=== PATIENT | female | born 1930 | race American Indian/Alaskan Native ===

== ENCOUNTER 2016-09-19 14:03 | Inpatient (IN) | payer MEDICARE ==
[2016-09-19 14:24] LABS: Urine Drugs of Abuse Note Disclamer
[2016-09-19 14:32] LABS: Bilirubin,Urine NEG (Negative); Blood,Urine NEG (Negative); Ketones,Urine NEG (Negative); Leukocyte Esterase,Urine NEG (Negative); Mucus,Urine FEW /HPF; Nitrite,Urine NEG (Negative); Protein,Urine <15 mg/dL mg/dL (Negative); RBC,Urine < 1.0 /HPF (0.0-6.0); Urobilinogen,Urine < 2.0 mg/dL (<2.0); WBC,Urine < 1.0 /HPF (0.0-6.0)
[2016-09-19 15:04] LABS: Basophils % (Auto) 0.8 % (0.0-1.8); Eosinophils % (Auto) 2.3 % (0.0-4.3); Hematocrit 39.7 % (30.3-42.9); Hemoglobin 13.1 gm/dl (10.1-14.3); Mean Corpuscular HGB Conc 33 % (30-34); Mean Corpuscular Hemoglobin 28 pg (28-32); Mean Corpuscular Volume 85 fl (79-97); Platelet Count 172 K/mm3 (140-440); Red Blood Count 4.68 M/mm3 (3.65-5.03); Red Cell Distribution Width 14.5 % (13.2-15.2); White Blood Count 5.9 K/mm3 (4.5-11.0)
[2016-09-19 15:26] LABS: Albumin 3.5 g/dL (3.9-5); BUN/Creatinine Ratio 15.83; Bilirubin,Total 0.5 mg/dL (0.1-1.2); Calcium 9.3 mg/dL (8.4-10.2); Chloride 103.7 mmol/L (98-107); Total Protein 6.9 g/dL (6.3-8.2)
--- NOTE | 2016-09-19 16:10 | Emergency Department Report ---
HPI - General Chief Complaint: Neuro Symptoms/Deficit Time Seen by Provider: 09/19/16 15:56 - HPI HPI: This is an 86-year-old -[place] female who presents to the emergency department by EMS from home with complaint of some right-sided weakness. The patient says that her family felt that she was having trouble getting up the stairs because of this weakness and called EMS. The patient herself denies any headache, vision change, slurred speech, facial asymmetry but does agree that she had some right-sided weakness that has since resolved. She has a past medical history of a previous CVA that did not leave her with any persistent deficits. She has not taken anything and was not given anything for her symptoms prior to presentation. She has a primary care physician but cannot currently remember the name. No recent travel or sick contacts at home. ED Past Medical Hx - Past Medical History Previous Medical History?: Yes Hx Hypertension: Yes Hx CVA: Yes - Surgical History Past Surgical History?: No - Social History Smoking Status: Never Smoker Substance Use Type: None - Medications Home Medications: Home Medications Medication Instructions Recorded Confirmed Last Taken Type Aspirin [Adult Low Dose Aspirin EC] 81 mg PO QDAY 09/19/16 09/19/16 Unknown History AtorvaSTATin [Lipitor] 40 mg PO QHS 09/19/16 09/19/16 Unknown History Carvedilol [Coreg] 25 mg PO BID 09/19/16 09/19/16 Unknown History ED Review of Systems ROS: Stated complaint: WEAKNESS Other details as noted in HPI Comment: All other systems reviewed and negative Constitutional: denies: chills, fever Eyes: denies: eye pain, eye discharge, vision change ENT: denies: ear pain, throat pain Respiratory: denies: cough, shortness of breath, wheezing Cardiovascular: denies: chest pain, palpitations Gastrointestinal: denies: abdominal pain, nausea, diarrhea Genitourinary: denies: urgency, dysuria, discharge Musculoskeletal: denies: back pain, joint swelling, arthralgia Skin: denies: rash, lesions Neurological: weakness. denies: headache, numbness, paresthesias Physical Exam - Physical Exam Vital Signs: Vital Signs 09/19/16 09/19/16 09/19/16 14:07 14:08 14:10 Pulse Rate 74 74 Respiratory 14 13 14 Rate Blood Pressure O2 Sat by Pulse 100 99 98 Oximetry 09/19/16 09/19/16 09/19/16 14:12 14:14 14:16 Pulse Rate 80 74 76 Respiratory 15 12 16 Rate Blood Pressure 173/84 173/84 O2 Sat by Pulse 99 98 99 Oximetry 09/19/16 09/19/16 09/19/16 14:24 14:30 14:46 Pulse Rate 70 72 Respiratory 12 13 16 Rate Blood Pressure 173/84 173/84 O2 Sat by Pulse 98 99 99 Oximetry 09/19/16 09/19/16 09/19/16 15:00 15:16 15:30 Pulse Rate 76 74 94 H Respiratory 19 24 22 Rate Blood Pressure 173/84 O2 Sat by Pulse 99 99 98 Oximetry Physical Exam: GENERAL: The patient is well-developed well-nourished. HEENT: Normocephalic. Atraumatic. Extraocular motions are intact. Patient has moist mucous membranes. Pupils equal reactive to light bilaterally. NECK: Supple. Trachea is midline. CHEST/LUNGS: Clear to auscultation. There is no respiratory distress noted. HEART/CARDIOVASCULAR: Regular. There is no tachycardia. There is no gallop rub or murmur. ABDOMEN: Abdomen is soft, nontender. Patient has normal bowel sounds. There is no abdominal distention. SKIN: There is no rash. There is no edema. There is no diaphoresis. NEURO: The patient is awake, alert, and oriented. The patient is cooperative. The patient has no focal neurologic deficits. The patient has normal speech. Cranial nerves II through XII grossly intact. No pronator drift. No dysmetria. MUSCULOSKELETAL: There is no tenderness or deformity. There is no limitation range of motion. There is no evidence of acute injury. Muscle strength 5 out of 5 for upper and lower extremities bilaterally. ED Course Vital Signs 09/19/16 09/19/16 09/19/16 14:07 14:08 14:10 Pulse Rate 74 74 Respiratory 14 13 14 Rate Blood Pressure O2 Sat by Pulse 100 99 98 Oximetry 09/19/16 09/19/16 09/19/16 14:12 14:14 14:16 Pulse Rate 80 74 76 Respiratory 15 12 16 Rate Blood Pressure 173/84 173/84 O2 Sat by Pulse 99 98 99 Oximetry 09/19/16 09/19/16 09/19/16 14:24 14:30 14:46 Pulse Rate 70 72 Respiratory 12 13 16 Rate Blood Pressure 173/84 173/84 O2 Sat by Pulse 98 99 99 Oximetry 09/19/16 09/19/16 09/19/16 15:00 15:16 15:30 Pulse Rate 76 74 94 H Respiratory 19 24 22 Rate Blood Pressure 173/84 O2 Sat by Pulse 99 99 98 Oximetry ED Medical Decision Making - Lab Data Result diagrams: 09/19/16 14:43 09/19/16 14:43 - EKG Data -: EKG Interpreted by Tn EKG shows normal: sinus rhythm, axis (left axis deviation), intervals, QRS complexes (LVH), ST-T waves Rate: normal - EKG Data When compared to previous EKG there are: previous EKG unavailable Interpretation: LVH - Radiology Data Radiology results: report reviewed TECHNIQUE: CT head without contrast PRIORS: None. FINDINGS: No acute intra-axial or extra-axial hemorrhage is identified. There is no evidence of midline shift or mass effect. There is generalized prominence of ventricles and sulci consistent with mild generalized atrophy. Ortiz-white matter differentiation is intact. No acute parenchymal abnormalities seen. There are patchy and confluent hypodensities within the supratentorial white matter. There is focal subcentimeter low-density within the left thalamus and within the right internal capsule Bony calvarium is grossly intact. Visualized portions of the mastoids and paranasal sinuses are unremarkable. 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 She also presents with very elevated blood pressure. Patient was evaluated in the emergency department and does not appear to have any current focal, motor or sensory deficits and her cranial nerves are intact. A CT of the head was done that shows some old lacunar infarcts but otherwise no acute process. Labs are mostly unremarkable and do not show any etiology of her symptoms. She was given something for her blood pressure with some transient relief but it came back up to the point of hypertensive urgency. With the patient's complaint of acute right-sided weakness and her hypertensive issues, as well as her previous history of CVA, the patient will be admitted to the hospital for further evaluation and treatment is been accepted for admission by the hospitalist, Dr. Mena. - Differential Diagnosis CVA, TIA, accelerated hypertension, [place] Critical Care Time: No Critical care attestation.: If time is entered above; I have spent that time in minutes in the direct care of this critically ill patient, excluding procedure time. ED Disposition Clinical Impression: Accelerated hypertension CVA (cerebral vascular accident) Qualifiers: CVA mechanism: unspecified Qualified Code(s): I63.9 - Cerebral infarction, unspecified Disposition: OP ADMITTED IP TO THIS HOSP Is pt being admited?: Yes Condition: Stable Time of Disposition: 19:35
--- NOTE | 2016-09-19 19:18 | Cat Scan Report ---
FINAL REPORT EXAM: CT HEAD/BRAIN WO CON HISTORY: right sided weakness TECHNIQUE: CT head without contrast PRIORS: None. FINDINGS: No acute intra-axial or extra-axial hemorrhage is identified. There is no evidence of midline shift or mass effect. There is generalized prominence of ventricles and sulci consistent with mild generalized atrophy. Ortiz-white matter differentiation is intact. No acute parenchymal abnormalities seen. There are patchy and confluent hypodensities within the supratentorial white matter. There is focal subcentimeter low-density within the left thalamus and within the right internal capsule Bony calvarium is grossly intact. Visualized portions of the mastoids and paranasal sinuses are unremarkable. 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
[2016-09-19] MEDS ORDERED: APRESOLINE IV ONE (19:28)
--- NOTE | 2016-09-19 19:36 | History and Physical Report ---
History of Present Illness Chief complaint: I feel sick and weak History of present illness: 86 YO Female with HTN, CVA, HLD, presents to ED for evaluation. Pt states that she felt weak today on her right side and was unable to walk like she normally does. The patient acknowledges that she was having trouble getting up the stairs because of this weakness and EMS was notified. The symptoms began this morning, and got worse over the past 2 hours with resolution prior to arrival to [facility]. The patient denies fever, chills, CP, Palpitations, headache, vision change, slurred speech, prolonged immobility/travel, individual/family history of DVT/PE, leg swelling, calf pain, hemoptysis, trauma, or recent ill contacts. Past History Past Medical History: hypertension, hyperlipidemia, stroke Past Surgical History: No surgical history, Other (reviewed) Social history: single. denies: prescription drug abuse Family history: diabetes, hypertension Medications and Allergies Allergies Allergy/AdvReac Type Severity Reaction Status Date / Time No Known Allergies Allergy Unverified 01/16/15 12:07 Home Medications Medication Instructions Recorded Confirmed Last Taken Type Aspirin [Adult Low Dose Aspirin EC] 81 mg PO QDAY 09/19/16 09/19/16 Unknown History AtorvaSTATin [Lipitor] 40 mg PO QHS 09/19/16 09/19/16 Unknown History Carvedilol [Coreg] 25 mg PO BID 09/19/16 09/19/16 Unknown History Review of Systems All systems: negative Constitutional: weakness Exam - Constitutional Vitals: Temp Pulse Resp BP Pulse Ox 73 11 L 216/93 97 09/19/16 18:54 09/19/16 18:54 09/19/16 18:54 09/19/16 18:54 General appearance: Present: no acute distress, well-nourished - EENT Eyes: Present: PERRL ENT: hearing intact, clear oral mucosa - Neck Neck: Present: supple, normal ROM - Respiratory Respiratory effort: normal Respiratory: bilateral: CTA - Cardiovascular Heart Sounds: Present: S1 & S2. Absent: rub, click - Extremities Extremities: pulses symmetrical, No edema Peripheral Pulses: within normal limits - Abdominal General gastrointestinal: Present: soft, non-tender, non-distended, normal bowel sounds Female genitourinary: Present: normal - Integumentary Integumentary: Present: clear, warm, dry - Musculoskeletal Musculoskeletal: gait normal, strength equal bilaterally - Psychiatric Psychiatric: appropriate mood/affect, intact judgment & insight - Neurologic Neurologic: CNII-XII intact, moves all extremities Results - Labs CBC & Chem 7: 09/19/16 14:43 09/19/16 14:43 Labs: Abnormal lab results 09/19/16 09/19/16 Range/Units 14:43 14:43 BUN 19 H (7-17) mg/dL Glucose 106 H (65-100) mg/dL Albumin 3.5 L (3.9-5) g/dL Salicylates < 0.3 L (2.8-20.0) mg/dL Assessment and Plan - Patient Problems (1) CVA (cerebral vascular accident) Current Visit: Yes Status: Acute Qualifiers: CVA mechanism: C Precerebral and cerebral artery: P Laterality of affected vessel: L Plan to address problem: Stroke Protocol: CT ahead, MRI/MRA, Echo, Carotid Doppler, PT/OT/ Speech therapy , antiplatelet therapy (2) Accelerated hypertension Current Visit: Yes Status: Acute Plan to address problem: monitor bp q shift, continue current care. hydralazine Prn: goal systolic BP 165 -185 overnight. (3) HLD (hyperlipidemia) Current Visit: Yes Status: Acute Qualifiers: Hyperlipidemia type: H Plan to address problem: continue statin therapy (4) DVT prophylaxis Current Visit: Yes Status: Acute
[2016-09-19] MEDS ORDERED: DUONEB 0.5 MG-3 MG/3 ML SOLN IH PRN (19:39)
[2016-09-19] MEDS ORDERED: TYLENOL PO PRN ×2 (19:39→19:42)
[2016-09-19] MEDS ORDERED: REGLAN PO PRN (19:42)
[2016-09-19] MEDS ORDERED: PHENERGAN PR PRN (19:42)
[2016-09-19] MEDS ORDERED: ZOFRAN IV PRN (19:42)
[2016-09-19] MEDS ORDERED: SODIUM CHLORIDE FLUSH SYRINGE 10 ML IV PRN (19:42)
[2016-09-19] MEDS ORDERED: DULCOLAX PR PRN (19:42)
[2016-09-19] MEDS ORDERED: MILK OF MAGNESIA PO PRN (19:42)
[2016-09-19] MEDS ORDERED: PROVENTIL IH PRN (19:59)
[2016-09-19] MEDS ORDERED: ZOCOR PO SCH (22:00)
[2016-09-19] MEDS: COREG PO SCH (23:12)
--- NOTE | 2016-09-20 09:17 | Magnetic Resonance Report ---
MRI of the brain without contrast. History: Stroke. Procedure: Routine brain protocol without contrast. Motion artifact degrades image quality on multiple sequences. Findings: There are 3 subcentimeter areas of restricted diffusion in the right cerebellar hemisphere. There are associated areas of edema/hyperintense T2 signal in these regions. No additional areas of restricted diffusion are seen. Senescent changes consistent with age are present. A chronic lacunar infarct is seen in the right basal ganglia and left thalamus. There are no masses or extra-axial collections. Areas of hyperintense T2 and flair signal are seen in the periventricular white matter. The visualized extracranial structures are unremarkable. The pituitary gland is normal. Impression: 1. 3 acute lacunar infarcts are present in the right cerebellar hemisphere, probably embolic in origin. 2. Senescent and chronic ischemic changes. Comment: These findings were given by telephone to the patient's nurse Robert at 9:10 AM on September 20, 2016.
--- NOTE | 2016-09-20 09:32 | Progress Note ---
Assessment and Plan Assessment and plan: --Acute CVA with right-sided weakness Not a candidate for TPA, continue aspirin and statin Physical therapy occupational therapy rehabilitation, consult neurology Follow echocardiogram to rule out embolic source --Hypertension; moderate control Permissive hypertension per protocol closely monitor --Dyslipidemia stable on lipid-lowering medications --DVT prophylaxis with Lovenox DC planning. Case management --Full CODE STATUS Closely monitor the patient and adjust management as needed Follow neurology and recommendations History Interval history: Patient seen and evaluated in her room medical records reviewed Admitted with acute CVA, abnormal findings on MRI, patient is on antiplatelets and statins Alert and awake not in acute distress Vital signs reviewed Hospitalist Physical - Constitutional Vitals: Temp Pulse Resp BP Pulse Ox 97.9 F 75 18 193/98 97 09/19/16 21:05 09/20/16 08:12 09/19/16 21:05 09/19/16 23:12 09/19/16 22:52 General appearance: Present: no acute distress, well-nourished - EENT Eyes: Present: PERRL, EOM intact - Neck Neck: Present: supple, normal ROM - Respiratory Respiratory effort: normal Respiratory: bilateral: diminished, negative: rales, rhonchi, wheezing - Cardiovascular Rhythm: regular Heart Sounds: Present: S1 & S2 - Extremities Extremities: no ischemia, pulses intact, pulses symmetrical Peripheral Pulses: within normal limits - Abdominal General gastrointestinal: soft, non-tender, non-distended, normal bowel sounds - Integumentary Integumentary: Present: clear, warm - Psychiatric Psychiatric: appropriate mood/affect, cooperative - Neurologic Neurologic: other (CVA with right-sided weakness) Results - Labs CBC & Chem 7: 09/19/16 14:43 09/19/16 14:43 Labs: Laboratory Last Values WBC 5.9 K/mm3 (4.5-11.0) 09/19/16 14:43 RBC 4.68 M/mm3 (3.65-5.03) 09/19/16 14:43 Hgb 13.1 gm/dl (10.1-14.3) 09/19/16 14:43 Hct 39.7 % (30.3-42.9) 09/19/16 14:43 MCV 85 fl (79-97) 09/19/16 14:43 MCH 28 pg (28-32) 09/19/16 14:43 MCHC 33 % (30-34) 09/19/16 14:43 RDW 14.5 % (13.2-15.2) 09/19/16 14:43 Plt Count 172 K/mm3 (140-440) 09/19/16 14:43 Lymph % (Auto) 34.3 % (13.4-35.0) 09/19/16 14:43 [place] % (Auto) 7.1 % (0.0-7.3) 09/19/16 14:43 Eos % (Auto) 2.3 % (0.0-4.3) 09/19/16 14:43 Baso % (Auto) 0.8 % (0.0-1.8) 09/19/16 14:43 Lymph # 2.0 K/mm3 (1.2-5.4) 09/19/16 14:43 [place] # 0.4 K/mm3 (0.0-0.8) 09/19/16 14:43 Eos # 0.1 K/mm3 (0.0-0.4) 09/19/16 14:43 Baso # 0.0 K/mm3 (0.0-0.1) 09/19/16 14:43 Seg Neutrophils % 55.5 % (40.0-70.0) 09/19/16 14:43 Seg Neutrophils # 3.3 K/mm3 (1.8-7.7) 09/19/16 14:43 Sodium 142 mmol/L (137-145) 09/19/16 14:43 Potassium 4.0 mmol/L (3.6-5.0) 09/19/16 14:43 Chloride 103.7 mmol/L (98-107) 09/19/16 14:43 Carbon Dioxide 29 mmol/L (22-30) 09/19/16 14:43 Anion Gap 13 mmol/L 09/19/16 14:43 BUN 19 mg/dL (7-17) H 09/19/16 14:43 Creatinine 1.2 mg/dL (0.7-1.2) 09/19/16 14:43 Estimated GFR 52 ml/min 09/19/16 14:43 BUN/Creatinine Ratio 15.83 % 09/19/16 14:43 Glucose 106 mg/dL (65-100) H 09/19/16 14:43 Lactic Acid 1.20 mmol/L (0.7-2.0) 09/19/16 16:47 Calcium 9.3 mg/dL (8.4-10.2) 09/19/16 14:43 Magnesium 2.00 mg/dL (1.7-2.3) 09/19/16 14:43 Total Bilirubin 0.50 mg/dL (0.1-1.2) 09/19/16 14:43 AST 17 units/L (5-40) 09/19/16 14:43 ALT 11 units/L (7-56) 09/19/16 14:43 Alkaline Phosphatase 45 units/L (35-129) 09/19/16 14:43 Total Protein 6.9 g/dL (6.3-8.2) 09/19/16 14:43 Albumin 3.5 g/dL (3.9-5) L 09/19/16 14:43 Albumin/Globulin Ratio 1.0 % 09/19/16 14:43 Triglycerides 55 mg/dL (2-149) 09/20/16 06:13 Cholesterol 137 mg/dL (50-199) 09/20/16 06:13 LDL Cholesterol Direct 66 mg/dL (50-130) 09/20/16 06:13 HDL Cholesterol 60 mg/dL (40-59) H 09/20/16 06:13 Cholesterol/HDL Ratio 2.28 % 09/20/16 06:13 TSH 1.030 mlU/mL (0.270-4.200) 09/19/16 14:43 Urine Color Yellow (Yellow) 09/19/16 14:23 Urine Turbidity Clear (Clear) 09/19/16 14:23 Urine pH 6.0 (5.0-7.0) 09/19/16 14:23 Ur Specific [place] 1.012 (1.003-1.030) 09/19/16 14:23 Urine Protein <15 mg/dl mg/dL (Negative) 09/19/16 14:23 Urine Glucose (UA) Neg mg/dL (Negative) 09/19/16 14:23 Urine Ketones Neg mg/dL (Negative) 09/19/16 14:23 Urine Blood Neg (Negative) 09/19/16 14:23 Urine Nitrite Neg (Negative) 09/19/16 14:23 Urine Bilirubin Neg (Negative) 09/19/16 14:23 Urine Urobilinogen < 2.0 mg/dL (<2.0) 09/19/16 14:23 Ur Leukocyte Esterase Neg (Negative) 09/19/16 14:23 Urine WBC (Auto) < 1.0 /HPF (0.0-6.0) 09/19/16 14:23 Urine RBC (Auto) < 1.0 /HPF (0.0-6.0) 09/19/16 14:23 Urine Mucus Few /HPF 09/19/16 14:23 Salicylates < 0.3 mg/dL (2.8-20.0) L 09/19/16 14:43 Urine Opiates Screen Presumptive negative 09/19/16 14:23 Urine Methadone Screen Presumptive negative 09/19/16 14:23 Acetaminophen < 15.0 ug/mL (10.0-30.0) 09/19/16 14:43 Ur Barbiturates Screen Presumptive negative 09/19/16 14:23 Ur Phencyclidine Scrn Presumptive negative 09/19/16 14:23 Ur Amphetamines Screen Presumptive negative 09/19/16 14:23 U Benzodiazepines Scrn Presumptive negative 09/19/16 14:23 Urine Cocaine Screen Presumptive negative 09/19/16 14:23 U Marijuana (THC) Screen Presumptive negative 09/19/16 14:23 Drugs of Abuse Note Disclamer 09/19/16 14:23 Plasma/Serum Alcohol < 0.01 gm% (0-0.07) 09/19/16 14:43
--- NOTE | 2016-09-20 09:41 | Magnetic Resonance Report ---
MRA of the [place] History: Stroke. Procedure: 3-D [id number] technique. Findings: There is moderate to severe narrowing of the distal right internal carotid artery at the siphon. There is also moderate narrowing of the proximal A1 segment of the right anterior cerebral artery. The left internal carotid, both middle cerebral arteries, and the left anterior cerebral artery are normal. The basilar and posterior cerebral arteries are normal. The left vertebral artery is normal. The right vertebral is occluded or atretic. The superior cerebral arteries appear normal. Impression: 1. 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 2. Moderate to severe narrowing of the A1 segment of the right anterior cerebral artery. Consider CT angiography of the brain for better evaluation.
[2016-09-20] MEDS ORDERED: ASPIRIN PO SCH (10:00)
[2016-09-20] MEDS: COREG PO SCH ×2 (10:40→21:06)
--- NOTE | 2016-09-20 11:18 | Consultation ---
History of Present Illness Consult date: 09/20/16 Requesting physician: KEITH SMITH Reason for Consult: stroke Chief complaint: difficulty walking. History of present illness: 86 YO F p/w difficulty walking since noticed 09/17 when she awoke. Sx are constant. There are no clear aggravating, relieving or temporal factors. Severity was enough to cause inability to effectively use the right side Past History Past Medical History: hypertension, hyperlipidemia, stroke (unclear details) Past Surgical History: No surgical history, Other (reviewed) Social history: single. denies: prescription drug abuse Family history: diabetes, hypertension Medications and Allergies Allergies Allergy/AdvReac Type Severity Reaction Status Date / Time No Known Allergies Allergy Unverified 01/16/15 12:07 Home Medications Medication Instructions Recorded Confirmed Last Taken Type Aspirin [Adult Low Dose Aspirin EC] 81 mg PO QDAY 09/19/16 09/19/16 Unknown History AtorvaSTATin [Lipitor] 40 mg PO QHS 09/19/16 09/19/16 Unknown History Carvedilol [Coreg] 25 mg PO BID 09/19/16 09/19/16 Unknown History Active Meds: Active Medications Acetaminophen (Tylenol) 650 mg PO Q4H PRN PRN Reason: Pain, Mild (1-3) Albuterol (Proventil) 2.5 mg IH Q4HRT PRN PRN Reason: Shortness Of Breath Atorvastatin Calcium (Lipitor) 40 mg PO QHS [facility] Last Admin: 09/19/16 23:12 Dose: 40 mg Bisacodyl (Dulcolax) 10 mg MA QDAY PRN PRN Reason: Constipation Carvedilol (Coreg) 25 mg PO BID [facility] Last Admin: 09/20/16 10:40 Dose: 25 mg Clopidogrel Bisulfate (Plavix) 75 mg PO QDAY [facility] Magnesium Hydroxide (Milk Of Magnesia) 30 ml PO Q4H PRN PRN Reason: Constipation Metoclopramide HCl (Reglan) 10 mg PO Q6H PRN PRN Reason: Nausea And Vomiting Ondansetron HCl (Zofran) 4 mg IV Q8H PRN PRN Reason: N/V unrelieved by Reglan Promethazine HCl (Phenergan) 25 mg MA Q6H PRN PRN Reason: Nausea And Vomiting Sodium Chloride (Sodium Chloride Flush Syringe 10 Ml) 10 ml IV PRN PRN PRN Reason: LINE FLUSH Review of Systems All systems: negative Neurological: weakness, ataxia, lack of coordination, balance difficulties, gait dysfunction, motor disturbance, no numbness, no tingling, no seizures, no syncope, no change in speech, no sensory deficit, no double vision Physical Examination - Vital Signs Vital Signs: Vital Signs Resp Pulse Ox 14 100 09/19/16 14:07 09/19/16 14:07 - Constitutional General appearance: comfortable - EENT EENT: Present: ATNC, PERRL, mucous membranes moist, hearing intact, vision intact - Respiratory Respiratory: Present: chest non-tender, normal breath sounds, no respiratory distress - Cardiovascular Cardiovascular: Present: regular rate Extremities: Present: no peripheral edema bilatateraly, no clubbing, cyanosis, no inflammation, no ischemia or petechiae - Gastrointestinal Gastrointestinal: Present: normoactive bowel sounds, soft, non-distended - Integumentary Integumentary: Present: normal - Neurologic Cranial nerve examination: PERRL, EOMI, V1/V2/V3 grossly intact, face symmetric , tongue midline, intact, intact shoulder shrug, Intact Vestibulo-ocular r, intact corneal reflex, normal palatal elevation Speech examination: intact Sensorimotor examination: pronator drift (on R), hemiparesis (on R UE) Motor examination - right side: 4/5: biceps, triceps, wrist flexion, wrist extension, roll mechanic, 5/5: hip flexors, knee extensors, dorsiflexion, toe extension ( EHL), plantarflexion Motor examination - left side: 5/5: biceps, triceps, wrist flexion, wrist extension, roll mechanic, hip flexors, knee extensors, dorsiflexion, toe extension (EHL) , plantarflexion Detailed sensory examination: intact, light touch, temperature Reflex and gait examination: Babinski's sign (on R) Reflexes: 0: ankle (on R), 1+: bicep, knee, tricep Cerebellar examination: ataxia (on RUE/LE), dysmetria (on RUE/LE), nystagmus ( to R) - Musculoskeletal Musculoskeletal: Present: no fluid collection, no pain, normal range of motion - Psychiatric Psychiatric: Present: mood/affect appropriate, cooperative Results - Laboratory Findings CBC and BMP: 09/19/16 14:43 09/19/16 14:43 Abnormal Lab Findings: Abnormal Labs 09/20/16 06:13 HDL Cholesterol 60 H Assessment and Plan 86 YO F Hx HTN/HLD/stroke unclear details or residual p/w wake up difficulty ambulating. On exam pt w/ R sided ataxia and slight UE hemiparesis. MRI Brain confirms R cerebellar infarct PICA distribution stroke. CDs neg. LDL 66. Plan and Recommendation: 1. No indication for pharmacologic thrombolysis with IV tPA or mechanical thrombectomy due to last known normal > 6 hrs from presentation. Current NIHSS 3. 2. Telemetry bed w/ Q4 hour neuro checks 3. Vascular Imaging: MRA Head w/o Papa pending 4. TTE to eval for possible cardiac source of embolism 5. Autoregulate SBP to goal 120-160 as pt is outside permissive HTN window. 6. Secondary stroke prevention: Change ASA to Plavix 75mg QDay-pt did report 1 episode of ? urine blood last week but not persistent. Advise to monitor as outpt as well. High dose statin therapy (Crestor 20mg or 40mg OR Lipitor 40mg or 80mg Daily OR Zocor 40mg QDay) for goal LDL < 70.. 7. F/E/N: isotonic IVF prn, prn replete, bedside speech/swallow eval prior to PO intake. 8. DVT Prophylaxis 9. Stroke education, PT/OT/Speech Therapy consults, CM evaluation 10. For any changes in neurologic status, pls obtain STAT CTH w/o contrast and call neurology
--- NOTE | 2016-09-20 16:17 | Admit Criteria Form ---
Admission Criteria Documentation: STROKE: ISCHEMIC Clinical Indications for Admission to Inpatient Care (Place 'X' for any and all applicable criteria): Admission is indicated for ANY ONE of the following(1)(2)(3)(4): [X]I. Acute stroke Extended stay beyond goal length of stay may be needed for(1)(2) [ ]a) Major deficit or clinical deterioration [ ]b) Hospital-acquired infection (eg, urinary tract infection, pneumonia) [ ]c) Embolic cause of stroke [ ]d) Venous thromboembolism(9) [ ]e) Seizures [ ]f) Bleeding (eg, cerebral) [ ]g) Increased intracranial pressure [ ]h) Comorbidities [ ]i) Surgical intervention The original [facility] content created by [employer] has been revised. The portions of the content which have been revised are identified through the use of italic text or in bold, and [facility] has neither reviewed nor approved the modified material. All other unmodified content is copyright [facility]. Please see references footnoted in the original [facility] edition 2016 Admission Criteria Met: Yes
[2016-09-21] MEDS ORDERED: APRESOLINE IV ONE ×3 (05:50→18:31)
--- NOTE | 2016-09-21 09:10 | Progress Note ---
Assessment and Plan Assessment and plan: --Acute CVA with right-sided weakness Not a candidate for TPA, continue aspirin and statin Physical therapy occupational therapy rehabilitation, Neuro evaluation noted and appreciated echocardiogram no thrombus --Hypertension; moderate control Permissive hypertension per protocol closely monitor --Dyslipidemia stable on lipid-lowering medications --DVT prophylaxis with Lovenox DC planning. Case management Discussed therapy occupational therapy Possible rehabilitation placement in 1-2 days if stable I discussed with Dr. Jennifer Churchill, accepted the patient for rehabilitation once medically stable --Full CODE STATUS Closely monitor the patient and adjust management as needed Plan of care discussed with the patient's family member, her nurse and the case management History Interval history: Patient seen and evaluated in her room medical records reviewed Neuro workup is in progress, patient denies any focal weakness Denies chest pain or shortness of breath Alert awake oriented not in acute distress Vital signs reviewed Hospitalist Physical - Constitutional Vitals: Temp Pulse Resp BP Pulse Ox 98.1 F 80 21 201/96 100 09/21/16 06:09 09/21/16 08:37 09/21/16 06:09 09/21/16 06:09 09/21/16 06:09 General appearance: Present: no acute distress, well-nourished - EENT Eyes: Present: PERRL, EOM intact - Neck Neck: Present: supple, normal ROM - Respiratory Respiratory effort: normal Respiratory: bilateral: diminished, negative: rales, rhonchi, wheezing - Cardiovascular Rhythm: regular Heart Sounds: Present: S1 & S2 - Extremities Extremities: no ischemia, pulses intact, pulses symmetrical Peripheral Pulses: within normal limits - Abdominal General gastrointestinal: soft, non-tender, non-distended, normal bowel sounds - Integumentary Integumentary: Present: clear, warm - Psychiatric Psychiatric: appropriate mood/affect, cooperative - Neurologic Neurologic: other (residual weakness) Results - Labs CBC & Chem 7: 09/19/16 14:43 09/19/16 14:43 Labs: Laboratory Last Values WBC 5.9 K/mm3 (4.5-11.0) 09/19/16 14:43 RBC 4.68 M/mm3 (3.65-5.03) 09/19/16 14:43 Hgb 13.1 gm/dl (10.1-14.3) 09/19/16 14:43 Hct 39.7 % (30.3-42.9) 09/19/16 14:43 MCV 85 fl (79-97) 09/19/16 14:43 MCH 28 pg (28-32) 09/19/16 14:43 MCHC 33 % (30-34) 09/19/16 14:43 RDW 14.5 % (13.2-15.2) 09/19/16 14:43 Plt Count 172 K/mm3 (140-440) 09/19/16 14:43 Lymph % (Auto) 34.3 % (13.4-35.0) 09/19/16 14:43 [place] % (Auto) 7.1 % (0.0-7.3) 09/19/16 14:43 Eos % (Auto) 2.3 % (0.0-4.3) 09/19/16 14:43 Baso % (Auto) 0.8 % (0.0-1.8) 09/19/16 14:43 Lymph # 2.0 K/mm3 (1.2-5.4) 09/19/16 14:43 [place] # 0.4 K/mm3 (0.0-0.8) 09/19/16 14:43 Eos # 0.1 K/mm3 (0.0-0.4) 09/19/16 14:43 Baso # 0.0 K/mm3 (0.0-0.1) 09/19/16 14:43 Seg Neutrophils % 55.5 % (40.0-70.0) 09/19/16 14:43 Seg Neutrophils # 3.3 K/mm3 (1.8-7.7) 09/19/16 14:43 Sodium 142 mmol/L (137-145) 09/19/16 14:43 Potassium 4.0 mmol/L (3.6-5.0) 09/19/16 14:43 Chloride 103.7 mmol/L (98-107) 09/19/16 14:43 Carbon Dioxide 29 mmol/L (22-30) 09/19/16 14:43 Anion Gap 13 mmol/L 09/19/16 14:43 BUN 19 mg/dL (7-17) H 09/19/16 14:43 Creatinine 1.2 mg/dL (0.7-1.2) 09/19/16 14:43 Estimated GFR 52 ml/min 09/19/16 14:43 BUN/Creatinine Ratio 15.83 % 09/19/16 14:43 Glucose 106 mg/dL (65-100) H 09/19/16 14:43 Lactic Acid 1.20 mmol/L (0.7-2.0) 09/19/16 16:47 Calcium 9.3 mg/dL (8.4-10.2) 09/19/16 14:43 Magnesium 2.00 mg/dL (1.7-2.3) 09/19/16 14:43 Total Bilirubin 0.50 mg/dL (0.1-1.2) 09/19/16 14:43 AST 17 units/L (5-40) 09/19/16 14:43 ALT 11 units/L (7-56) 09/19/16 14:43 Alkaline Phosphatase 45 units/L (35-129) 09/19/16 14:43 Total Protein 6.9 g/dL (6.3-8.2) 09/19/16 14:43 Albumin 3.5 g/dL (3.9-5) L 09/19/16 14:43 Albumin/Globulin Ratio 1.0 % 09/19/16 14:43 Triglycerides 55 mg/dL (2-149) 09/20/16 06:13 Cholesterol 137 mg/dL (50-199) 09/20/16 06:13 LDL Cholesterol Direct 66 mg/dL (50-130) 09/20/16 06:13 HDL Cholesterol 60 mg/dL (40-59) H 09/20/16 06:13 Cholesterol/HDL Ratio 2.28 % 09/20/16 06:13 TSH 1.030 mlU/mL (0.270-4.200) 09/19/16 14:43 Urine Color Yellow (Yellow) 09/19/16 14:23 Urine Turbidity Clear (Clear) 09/19/16 14:23 Urine pH 6.0 (5.0-7.0) 09/19/16 14:23 Ur Specific [place] 1.012 (1.003-1.030) 09/19/16 14:23 Urine Protein <15 mg/dl mg/dL (Negative) 09/19/16 14:23 Urine Glucose (UA) Neg mg/dL (Negative) 09/19/16 14:23 Urine Ketones Neg mg/dL (Negative) 09/19/16 14:23 Urine Blood Neg (Negative) 09/19/16 14:23 Urine Nitrite Neg (Negative) 09/19/16 14:23 Urine Bilirubin Neg (Negative) 09/19/16 14:23 Urine Urobilinogen < 2.0 mg/dL (<2.0) 09/19/16 14:23 Ur Leukocyte Esterase Neg (Negative) 09/19/16 14:23 Urine WBC (Auto) < 1.0 /HPF (0.0-6.0) 09/19/16 14:23 Urine RBC (Auto) < 1.0 /HPF (0.0-6.0) 09/19/16 14:23 Urine Mucus Few /HPF 09/19/16 14:23 Salicylates < 0.3 mg/dL (2.8-20.0) L 09/19/16 14:43 Urine Opiates Screen Presumptive negative 09/19/16 14:23 Urine Methadone Screen Presumptive negative 09/19/16 14:23 Acetaminophen < 15.0 ug/mL (10.0-30.0) 09/19/16 14:43 Ur Barbiturates Screen Presumptive negative 09/19/16 14:23 Ur Phencyclidine Scrn Presumptive negative 09/19/16 14:23 Ur Amphetamines Screen Presumptive negative 09/19/16 14:23 U Benzodiazepines Scrn Presumptive negative 09/19/16 14:23 Urine Cocaine Screen Presumptive negative 09/19/16 14:23 U Marijuana (THC) Screen Presumptive negative 09/19/16 14:23 Drugs of Abuse Note Disclamer 09/19/16 14:23 Plasma/Serum Alcohol < 0.01 gm% (0-0.07) 09/19/16 14:43
[2016-09-21] MEDS: COREG PO SCH ×2 (10:32→21:19)
[2016-09-21] MEDS: PLAVIX PO SCH (10:32)
--- NOTE | 2016-09-21 12:46 | Consultation ---
History of Present Illness - Reason for Consult Consult date: 09/21/16 Evaluate for Acute IRU - History of Present Illness 86 y.o. right handed female who [facility] secondary to acute onset of progressive right sided weakness and difficulty ambulating. Pt reports having a stroke in her 40s, however, did not have any residual affects from this. Brain CT noted to be negative; however, MRI Brain showed 3 acute lacunar infarcts in the right cerebellar hemisphere, likely embolic in nature. TTE completed; pending need for anticoagulation due to noted embolic CVAs. Consult is requested for post-acute placement recommendations. Past History Past Medical History: hypertension, hyperlipidemia, stroke (prior stroke when she was approximately 42 years old; denies any functional deficits) Past Surgical History: No surgical history (pt denies) Social history: single, lives with family (daugther and son-in-law). denies: smoking (+chewing tobacco) Family history: no significant family history (pt denies) Medications and Allergies Allergies Allergy/AdvReac Type Severity Reaction Status Date / Time No Known Allergies Allergy Unverified 01/16/15 12:07 Home Medications Medication Instructions Recorded Confirmed Last Taken Type Aspirin [Adult Low Dose Aspirin EC] 81 mg PO QDAY 09/19/16 09/19/16 Unknown History AtorvaSTATin [Lipitor] 40 mg PO QHS 09/19/16 09/19/16 Unknown History Carvedilol [Coreg] 25 mg PO BID 09/19/16 09/19/16 Unknown History Active Meds: Active Medications Acetaminophen (Tylenol) 650 mg PO Q4H PRN PRN Reason: Pain, Mild (1-3) Albuterol (Proventil) 2.5 mg IH Q4HRT PRN PRN Reason: Shortness Of Breath Atorvastatin Calcium (Lipitor) 40 mg PO QHS [facility] Last Admin: 09/20/16 21:07 Dose: 40 mg Bisacodyl (Dulcolax) 10 mg SC QDAY PRN PRN Reason: Constipation Carvedilol (Coreg) 25 mg PO BID [facility] Last Admin: 09/21/16 10:32 Dose: 25 mg Clopidogrel Bisulfate (Plavix) 75 mg PO QDAY [facility] Last Admin: 09/21/16 10:32 Dose: 75 mg Magnesium Hydroxide (Milk Of Magnesia) 30 ml PO Q4H PRN PRN Reason: Constipation Metoclopramide HCl (Reglan) 10 mg PO Q6H PRN PRN Reason: Nausea And Vomiting Ondansetron HCl (Zofran) 4 mg IV Q8H PRN PRN Reason: N/V unrelieved by Reglan Promethazine HCl (Phenergan) 25 mg SC Q6H PRN PRN Reason: Nausea And Vomiting Sodium Chloride (Sodium Chloride Flush Syringe 10 Ml) 10 ml IV PRN PRN PRN Reason: LINE FLUSH Review of Systems All systems: negative Ears, nose, mouth and throat: headache Cardiovascular: no chest pain Respiratory: no cough Gastrointestinal: no abdominal pain, no constipation Genitourinary Female: no dysuria Neurological: balance difficulties, gait dysfunction Exam - Constitutional Vitals: Vital Signs - 12hr 09/21/16 09/21/16 09/21/16 03:00 06:02 06:09 Temperature 97.8 F 98.1 F Pulse Rate 87 Pulse Rate [ 74 87 Right Radial] Respiratory 18 21 Rate Blood Pressure 221/91 Blood Pressure 181/81 201/96 [Left Arm] O2 Sat by Pulse 98 100 Oximetry 09/21/16 09/21/16 08:37 10:52 Temperature 98.5 F Pulse Rate 80 Pulse Rate [ 87 Right Radial] Respiratory 16 Rate Blood Pressure Blood Pressure 170/72 [Left Arm] O2 Sat by Pulse 99 Oximetry General appearance: no acute distress - EENT Eyes: EOM intact ENT: hearing intact, clear oral mucosa - Neck Neck: supple, normal ROM - Respiratory Respiratory effort: normal Respiratory: bilateral: CTA - Cardiovascular Rhythm: regular Heart Sounds: Present: S1 & S2 - Extremities Extremities: No edema - Gastrointestinal General gastrointestinal: Present: soft, non-tender, non-distended, normal bowel sounds - Integumentary Integumentary: Present: clear - Neurologic Neurologic: CNII-XII intact, moves all extremities - Psychiatric Psychiatric: appropriate mood/affect, intact judgment & insight, memory intact, cooperative - Allied health notes Allied health notes reviewed: PT (Rupal/CGA for bed mobility; modA for transfers ; maxA 4 feet with RW), ST (cleared for regular diet with thin liquids), OT ( Independent with eating; s/u for grooming; Rupal for UB dressing; modA for LB dressing) FIMS assesment as documented by PT/OT/ST: Locomotion- walk/wheelchair Ambulation Distance 4 - Labs CBC & Chem 7: 09/19/16 14:43 09/19/16 14:43 Labs: Laboratory Results - last 72 hr 09/20/16 06:13 Triglycerides 55 Cholesterol 137 LDL Cholesterol Direct 66 HDL Cholesterol 60 H Cholesterol/HDL Ratio 2.28 Assessment and Plan Patient was assessed and evaluated for Acute Inpatient Rehab Unit. 86 y.o. right handed female with 3 acute embolic lacunar infarcts in the right cerebellar hemisphere. Pt is with improved right sided weakness, however, continues with impaired balance limiting independence with self cares and mobility. Pt was noted to be independent with ADLs, transfers, and gait prior to admission; occasionally used a RW when out of the home. Currently, pt requires Rupal/CGA for bed mobility; modA for transfers; maxA 4 feet with RW; s/ u for grooming; Rupal for UB dressing; modA for LB dressing. Pt would benefit from inpatient rehabilitation course to address ongoing functional deficits; also for ongoing medical management of HTN (BP ranging from 133-221/54-106). Pt is thought to be able to tolerate 3 hours of therapy, 5 days per week; thought to be able to make reasonable functional improvement prior to returning home. Potential barriers/complications that currently prevent safe return home or transfer to a lower level of care include impaired mobility, balance; uncontrolled HTN; potential need for anti-coagulation; risk of falls, recurrent/ extension of CVA, DVT, PE, syncope. Pt has good overall medical prognosis, is motivated to participate in therapies, and has good family support. Case discussed with IM; anticipate IRU admission when cleared by primary team. Will continue to follow. - Patient Problems (1) CVA (cerebral vascular accident) Current Visit: Yes Status: Acute Qualifiers: CVA mechanism: unspecified Precerebral and cerebral artery: P Laterality of affected vessel: L Qualified Code(s): I63.9 - Cerebral infarction, unspecified (2) Abnormality of gait following cerebrovascular accident (CVA) Current Visit: Yes Status: Acute (3) Accelerated hypertension Current Visit: Yes Status: Chronic
[2016-09-21] MEDS ORDERED: REGLAN PO PRN (12:59)
[2016-09-21] MEDS: APRESOLINE PO SCH (21:19)
[2016-09-22] MEDS: APRESOLINE PO SCH ×4 (06:42→21:51)
[2016-09-22] MEDS ORDERED: APRESOLINE IV ONE (08:45)
[2016-09-22] MEDS: COREG PO SCH ×2 (09:32→21:50)
[2016-09-22] MEDS: PLAVIX PO SCH (09:32)
[2016-09-22] MEDS: PROCARDIA XL PO SCH (09:32)
--- NOTE | 2016-09-22 11:53 | Discharge Summary ---
Providers - Providers Date of Admission: 09/19/16 19:39 Date of discharge: 09/22/16 Attending physician: RAGHAV REHMAN 09/19/16 19:42 Occupational Therapy Evaluate and Treat [CONS] Routine Comment: Reason For Exam: Neuro deficits Physical Therapy Evaluation and Treat [CONS] Routine Comment: Reason For Exam: Neuro deficits Speech Therapy Evaluation and Treat [CONS] Routine Reason For Exam: swallow eval 09/20/16 09:30 Consult to Physician [CONS] Routine Consulting Provider: KEILA COLUNGA Reason For Exam: acute CVA Place consult to:: Dr. Colunga Notified:: Karlene ADAMS Phone number called:: [phone] Was contact made?: Yes If yes, spoke with:: Flakito with consult info left for [place]ita [place] Time called:: 11:14 09/21/16 09:59 Consult to Physician [CONS] Routine Consulting Provider: TYLER HESS Reason For Exam: iru eval Place consult to:: vasquez Notified:: yes Phone number called:: [phone] Was contact made?: Yes If yes, spoke with:: JESSICA Time called:: 10:01 Primary care physician: [employer] Hospitalization Condition: Stable Disposition: DC/TX INPT REHAB FACILITY Core Measure Documentation - Palliative Care Palliative Care/ Comfort Measures: Not Applicable - Core Measures Any of the following diagnoses?: stroke - Stroke Discharge Requirements Statin for LDL = or >70 mg/dl on DC: Yes Anticoag for atrial fib/atrial flutter: Not Applicable (no A. fib or flutter) Antithrombotic for ischemic stroke: Yes Exam - Constitutional Vitals: Temp Pulse Resp BP Pulse Ox 98.5 F 80 20 149/67 96 09/22/16 11:16 09/22/16 11:16 09/22/16 11:16 09/22/16 11:16 09/22/16 11:16 General appearance: Present: no acute distress, well-nourished - EENT Eyes: Present: PERRL, EOM intact - Neck Neck: Present: supple, normal ROM - Respiratory Respiratory effort: normal Respiratory: bilateral: diminished, negative: rales, rhonchi, wheezing - Cardiovascular Rhythm: regular Heart Sounds: Present: S1 & S2 Plan Follow up with: PRIMARY CARE,MD [Primary Care Provider] - 3-5 Days
--- NOTE | 2016-09-22 12:00 | Progress Note ---
Assessment and Plan Assessment and plan: --Malignant hypertension; Patient's blood pressure ranges between 180s to 200 systolic Continue current antihypertensives, increase the dose, add nifedipine --Acute CVA with right-sided weakness Not a candidate for TPA, continue Plavix and statin Physical therapy occupational therapy rehabilitation, Neuro evaluation noted , echocardiogram no thrombus Patient does not have any history of atrial fibrillation --Patient accepted for inpatient rehabilitation Will DC and transferred once medically stable --Dyslipidemia stable on lipid-lowering medications --DVT prophylaxis with Lovenox DC planning. Case management I discussed with Dr. Jennifer Churchill, will DC and transferred to inpatient rehabilitation once her blood pressures are reasonably controlled And then the patient is medically stable --Full CODE STATUS Closely monitor the patient and adjust management as needed Plan of care discussed with the patient's family member, her nurse and the case management History Interval history: Patient seen and evaluated in her room this morning medical records reviewed Patient has very uncontrolled blood pressures, this morning it was more than 200 systolic Patient denies any headache or chest pain Patient feels better, alert awake oriented 3 not in acute distress Vital signs reviewed Hospitalist Physical - Constitutional Vitals: Temp Pulse Resp BP Pulse Ox 98.5 F 80 20 149/67 96 09/22/16 11:16 09/22/16 11:16 09/22/16 11:16 09/22/16 11:16 09/22/16 11:16 General appearance: Present: no acute distress, well-nourished - EENT Eyes: Present: PERRL, EOM intact - Neck Neck: Present: supple, normal ROM - Respiratory Respiratory effort: normal - Cardiovascular Rhythm: regular Heart Sounds: Present: S1 & S2 - Extremities Extremities: no ischemia, pulses intact Peripheral Pulses: within normal limits - Abdominal General gastrointestinal: soft, non-tender, non-distended, normal bowel sounds - Integumentary Integumentary: Present: clear, warm - Psychiatric Psychiatric: appropriate mood/affect, cooperative - Neurologic Neurologic: CNII-XII intact, moves all extremities Results - Labs CBC & Chem 7: 09/19/16 14:43 09/19/16 14:43 Labs: Laboratory Last Values WBC 5.9 K/mm3 (4.5-11.0) 09/19/16 14:43 RBC 4.68 M/mm3 (3.65-5.03) 09/19/16 14:43 Hgb 13.1 gm/dl (10.1-14.3) 09/19/16 14:43 Hct 39.7 % (30.3-42.9) 09/19/16 14:43 MCV 85 fl (79-97) 09/19/16 14:43 MCH 28 pg (28-32) 09/19/16 14:43 MCHC 33 % (30-34) 09/19/16 14:43 RDW 14.5 % (13.2-15.2) 09/19/16 14:43 Plt Count 172 K/mm3 (140-440) 09/19/16 14:43 Lymph % (Auto) 34.3 % (13.4-35.0) 09/19/16 14:43 Hickman % (Auto) 7.1 % (0.0-7.3) 09/19/16 14:43 Eos % (Auto) 2.3 % (0.0-4.3) 09/19/16 14:43 Baso % (Auto) 0.8 % (0.0-1.8) 09/19/16 14:43 Lymph # 2.0 K/mm3 (1.2-5.4) 09/19/16 14:43 Hickman # 0.4 K/mm3 (0.0-0.8) 09/19/16 14:43 Eos # 0.1 K/mm3 (0.0-0.4) 09/19/16 14:43 Baso # 0.0 K/mm3 (0.0-0.1) 09/19/16 14:43 Seg Neutrophils % 55.5 % (40.0-70.0) 09/19/16 14:43 Seg Neutrophils # 3.3 K/mm3 (1.8-7.7) 09/19/16 14:43 Sodium 142 mmol/L (137-145) 09/19/16 14:43 Potassium 4.0 mmol/L (3.6-5.0) 09/19/16 14:43 Chloride 103.7 mmol/L (98-107) 09/19/16 14:43 Carbon Dioxide 29 mmol/L (22-30) 09/19/16 14:43 Anion Gap 13 mmol/L 09/19/16 14:43 BUN 19 mg/dL (7-17) H 09/19/16 14:43 Creatinine 1.2 mg/dL (0.7-1.2) 09/19/16 14:43 Estimated GFR 52 ml/min 09/19/16 14:43 BUN/Creatinine Ratio 15.83 % 09/19/16 14:43 Glucose 106 mg/dL (65-100) H 09/19/16 14:43 Lactic Acid 1.20 mmol/L (0.7-2.0) 09/19/16 16:47 Calcium 9.3 mg/dL (8.4-10.2) 09/19/16 14:43 Magnesium 2.00 mg/dL (1.7-2.3) 09/19/16 14:43 Total Bilirubin 0.50 mg/dL (0.1-1.2) 09/19/16 14:43 AST 17 units/L (5-40) 09/19/16 14:43 ALT 11 units/L (7-56) 09/19/16 14:43 Alkaline Phosphatase 45 units/L (35-129) 09/19/16 14:43 Total Protein 6.9 g/dL (6.3-8.2) 09/19/16 14:43 Albumin 3.5 g/dL (3.9-5) L 09/19/16 14:43 Albumin/Globulin Ratio 1.0 % 09/19/16 14:43 Triglycerides 55 mg/dL (2-149) 09/20/16 06:13 Cholesterol 137 mg/dL (50-199) 09/20/16 06:13 LDL Cholesterol Direct 66 mg/dL (50-130) 09/20/16 06:13 HDL Cholesterol 60 mg/dL (40-59) H 09/20/16 06:13 Cholesterol/HDL Ratio 2.28 % 09/20/16 06:13 TSH 1.030 mlU/mL (0.270-4.200) 09/19/16 14:43 Urine Color Yellow (Yellow) 09/19/16 14:23 Urine Turbidity Clear (Clear) 09/19/16 14:23 Urine pH 6.0 (5.0-7.0) 09/19/16 14:23 Ur Specific Magness 1.012 (1.003-1.030) 09/19/16 14:23 Urine Protein <15 mg/dl mg/dL (Negative) 09/19/16 14:23 Urine Glucose (UA) Neg mg/dL (Negative) 09/19/16 14:23 Urine Ketones Neg mg/dL (Negative) 09/19/16 14:23 Urine Blood Neg (Negative) 09/19/16 14:23 Urine Nitrite Neg (Negative) 09/19/16 14:23 Urine Bilirubin Neg (Negative) 09/19/16 14:23 Urine Urobilinogen < 2.0 mg/dL (<2.0) 09/19/16 14:23 Ur Leukocyte Esterase Neg (Negative) 09/19/16 14:23 Urine WBC (Auto) < 1.0 /HPF (0.0-6.0) 09/19/16 14:23 Urine RBC (Auto) < 1.0 /HPF (0.0-6.0) 09/19/16 14:23 Urine Mucus Few /HPF 09/19/16 14:23 Salicylates < 0.3 mg/dL (2.8-20.0) L 09/19/16 14:43 Urine Opiates Screen Presumptive negative 09/19/16 14:23 Urine Methadone Screen Presumptive negative 09/19/16 14:23 Acetaminophen < 15.0 ug/mL (10.0-30.0) 09/19/16 14:43 Ur Barbiturates Screen Presumptive negative 09/19/16 14:23 Ur Phencyclidine Scrn Presumptive negative 09/19/16 14:23 Ur Amphetamines Screen Presumptive negative 09/19/16 14:23 U Benzodiazepines Scrn Presumptive negative 09/19/16 14:23 Urine Cocaine Screen Presumptive negative 09/19/16 14:23 U Marijuana (THC) Screen Presumptive negative 09/19/16 14:23 Drugs of Abuse Note Disclamer 09/19/16 14:23 Plasma/Serum Alcohol < 0.01 gm% (0-0.07) 09/19/16 14:43
[2016-09-22] MEDS: LOVENOX SUB-Q SCH (15:30)
[2016-09-23 05:21] LABS: Anion Gap 17 mmol/L; Blood Urea Nitrogen 16 mg/dL (7-17); Calcium 9.2 mg/dL (8.4-10.2); Carbon Dioxide 24 mmol/L (22-30); Chloride 103.1 mmol/L (98-107); Glucose 106 mg/dL (65-100); Potassium 3.9 mmol/L (3.6-5.0); Sodium 140 mmol/L (137-145)
[2016-09-23 05:28] LABS: Basophils % (Auto) 0.5 % (0.0-1.8); Eosinophils % (Auto) 0.7 % (0.0-4.3); Hematocrit 39.6 % (30.3-42.9); Hemoglobin 13.1 gm/dl (10.1-14.3); Mean Corpuscular HGB Conc 33 % (30-34); Mean Corpuscular Hemoglobin 28 pg (28-32); Mean Corpuscular Volume 83 fl (79-97); Platelet Count 161 K/mm3 (140-440); Red Blood Count 4.76 M/mm3 (3.65-5.03); Red Cell Distribution Width 14.5 % (13.2-15.2); White Blood Count 6.5 K/mm3 (4.5-11.0)
[2016-09-23] MEDS: APRESOLINE PO SCH (05:30)
[2016-09-23] MEDS ORDERED: LOVENOX SUB-Q SCH (10:00)
--- NOTE | 2016-09-23 10:06 | Discharge Summary ---
Providers - Providers Date of Admission: 09/19/16 19:39 Date of discharge: 09/23/16 Attending physician: RAGHAV REHMAN 09/19/16 19:42 Occupational Therapy Evaluate and Treat [CONS] Routine Comment: Reason For Exam: Neuro deficits Physical Therapy Evaluation and Treat [CONS] Routine Comment: Reason For Exam: Neuro deficits Speech Therapy Evaluation and Treat [CONS] Routine Reason For Exam: swallow eval 09/20/16 09:30 Consult to Physician [CONS] Routine Consulting Provider: KEILA COLUNGA Reason For Exam: acute CVA Place consult to:: Dr. Colunga Notified:: Karlene ADAMS Phone number called:: [phone] Was contact made?: Yes If yes, spoke with:: Flakito with consult info left for Lalita Rock Time called:: 11:14 09/21/16 09:59 Consult to Physician [CONS] Routine Consulting Provider: TYLER HESS Reason For Exam: iru eval Place consult to:: vasquez Notified:: yes Phone number called:: [phone] Was contact made?: Yes If yes, spoke with:: JESSICA Time called:: 10:01 Primary care physician: SENIOR REVENUE ACCOUNTANT Hospitalization Reason for admission: generalized weakness/extremity weakness Condition: Stable Pertinent studies: CT head without contrast; chronic small vessel white matter ischemic change and denies atrophy and remote left thalamic and right internal capsular lacunar infarcts Carotid Doppler; no hemodynamically significant stenosis MRA brain; moderate to severe narrowing of the A1 segment of the right anterior cerebral artery moderate to severe narrowing of the right distal internal Carotid Echocardiogram; left ventricle ejection fraction 60-65%, no thrombus MRI Brain; today acute lacunar infarcts present in the right cerebellar cerebrovascular ischemia probably embolic in origin chronic ischemic changes Hospital course: Final Diagnosis; Acute CVA with right-sided weakness Not candidate for TPA Malignant hypertension moderate control Dyslipidemia A pleasant 86-year-old female patient with significant history of hypertension dyslipidemia on CVA with minimal residual weakness was admitted through emergency room with generalized weakness, and CVA like symptoms Patient was not a candidate for TPA Underwent extensive CVA workup as mentioned above Admitted to the hospital initiated stroke protocol, evaluated by neurologist MRI of the brain revealed 3 small strokes with possible embolic phenomenon However patient didn't have any history of atrial fibrillation, echocardiogram did not reveal any thrombus Patient was placed on antiplatelet and statin, received physical therapy occupational therapist. Rehabilitation screening The patient's blood she was closely monitored Patient had malignant hypertension very difficult to manage, today patient is comfortable in bed Alert and awake not in acute distress Vital signs reviewed [id number] evaluation and physical examination done by me prior to Discharge did not reveal any new findings as detailed below Patient was evaluated by acute rehabilitation physician, accepted for inpatient acute rehabilitation Patient is hemodynamically and clinically stable for discharge and transfer to inpatient rehabilitation today I discussed patient's condition treatment and discharge plan with the patient, her family members and nurse as well as a case management Disposition: DC/TX INPT REHAB FACILITY Time spent for discharge: 33 min Core Measure Documentation - Palliative Care Palliative Care/ Comfort Measures: Not Applicable - Core Measures Any of the following diagnoses?: stroke - Stroke Discharge Requirements Statin for LDL = or >70 mg/dl on DC: Yes Anticoag for atrial fib/atrial flutter: Not Applicable (no A. fib/flutter) Antithrombotic for ischemic stroke: Yes Exam - Constitutional Vitals: Temp Pulse Resp BP Pulse Ox 97.6 F 84 20 160/69 98 09/23/16 08:00 09/23/16 08:00 09/23/16 08:00 09/23/16 08:00 09/23/16 08:00 General appearance: Present: no acute distress, well-nourished - EENT Eyes: Present: PERRL, EOM intact - Neck Neck: Present: supple, normal ROM - Respiratory Respiratory effort: normal Respiratory: negative: diminished, rales, rhonchi, wheezing - Cardiovascular Rhythm: regular Heart Sounds: Present: S1 & S2 - Extremities Extremities: no ischemia, pulses intact, pulses symmetrical Peripheral Pulses: within normal limits - Abdominal General gastrointestinal: Present: soft, non-tender, non-distended, normal bowel sounds - Integumentary Integumentary: Present: clear, warm - Musculoskeletal Musculoskeletal: strength equal bilaterally - Psychiatric Psychiatric: appropriate mood/affect, cooperative - Neurologic Neurologic: CNII-XII intact, moves all extremities Plan Activity: advance as tolerated, fall precautions Diet: other (cardiac) Special Instructions: physical therapy, occupational therapy Additional Instructions: transfer to Inpatient Acute Rehab Follow up with: PRIMARY CARE, [Primary Care Provider] - 3-5 Days Prescriptions: AtorvaSTATin [Lipitor] 40 mg PO QHS #30 tablet Carvedilol [Coreg] 25 mg PO BID #60 tablet Clopidogrel [Plavix] 75 mg PO QDAY #30 tablet hydrALAZINE [Apresoline TAB] 50 mg PO Q8HR #90 tablet NIFEdipine XL [Procardia Xl] 30 mg PO QDAY #30 tablet
[2016-09-23] MEDS: LOVENOX SUB-Q SCH (10:50)
[2016-09-23] MEDS: PROCARDIA XL PO SCH (10:50)
[2016-09-23] MEDS: PLAVIX PO SCH (10:50)
[2016-09-23] MEDS: COREG PO SCH (10:50)
[2016-09-23 11:56] VITALS: BP 156/62
--- NOTE | 2016-09-27 07:27 | Vascular Lab Report ---
CAROTID DUPLEX STUDY: RIGHT PSVEDV CCA PROX:[id number] CCA DIST:[id number] ICA PROX:5818 ICA MID:[id number] ICA DIST:7416 ECA: 75 VERT: 13 0 LEFT PSVEDV CCA PROX:8914 CCA DIST:9121 ICA PROX:6525 ICA MID:7826 ICA DIST:8426 ECA: 72 VERT: 68 26 REASON FOR EXAM: Stroke. COMMENTS ON THE RIGHT: Doppler frequency analysis is consistent with 16 to 49 percent diameter reduction of the internal carotid artery. Minimal amount of plaque is seen. The common carotid artery is patent. The external carotid artery is patent. The vertebral artery has antegrade flow. COMMENTS ON THE LEFT: Doppler frequency analysis is consistent with 16 to 49 percent diameter reduction of the internal carotid artery. Minimal amount of plaque is seen. The common carotid artery is patent. The external carotid artery is patent. The vertebral artery has antegrade flow. IMPRESSION: Less than 50% diameter reduction in the internal carotid arteries bilaterally. Consider repeat carotid artery duplex in 12 months.
== END 2016-09-23 14:26 | DRG 66 ==
LOC: ED 14:03 → 4A 19:39 → EDBD 19:39
PROVIDERS: ADMIT Internal Medicine; ATTEND Internal Medicine
DX: I63.9 Cerebral infarction, unspecified (principal); I10 Essential (primary) hypertension; E78.5 Hyperlipidemia, unspecified; Z79.82 Long term (current) use of aspirin; Z83.3 Family history of diabetes mellitus; Z82.49 Family history of ischemic heart disease and other diseases of the circulatory system; Z86.73 Personal history of transient ischemic attack (TIA), and cerebral infarction without residual deficits
CPT/HCPCS: 36415; 70450; 70544; 70551; 80048; 80053; 80061; 80307; 80320; 81001; 82140; 83735; 84443; 85025; 93005; 93010; 93306; 93880; 96374; A9270-GY; G0480; G8978-GP; G8979-GP; G8987-GO; G8988-GO; J0360; J1650

== ENCOUNTER 2016-10-15 17:25 | Inpatient (IN) | payer MEDICARE ==
--- NOTE | 2016-10-15 19:12 | Emergency Department Report ---
HPI - General Chief Complaint: Altered Mental Status Time Seen by Provider: 10/15/16 18:48 - HPI HPI: Room 24 The patient is an 86-year-old female presenting with chief complaint of altered mental status. Patient was recently discharged after having a CVA at this Hospital. Family states that the patient see her neurologist (Dr. Alston) at 11: 00 this morning and the patient was in her normal state of health. After the appointment the patient was taken home from all eating family knows patient was picking at her food and then began drooling. The patient will not swallow her food or answer any questions. EMS was called and the patient was transported to the ED. Family states upon arrival to the ED the patient's symptoms resolved. Patient currently denies complaints Location: Mental state Duration: Minutes Quality: Unresponsive Severity: Moderate Modifying factors: [see above] Context: [see above] Mode of transportation: EMS ED Past Medical Hx - Past Medical History Hx Hypertension: Yes Hx CVA: Yes (with residual left-sided weakness) - Surgical History Past Surgical History?: No - Family History Family history: no significant - Social History Smoking Status: Never Smoker Substance Use Type: None - Medications Home Medications: Home Medications Medication Instructions Recorded Confirmed Last Taken Type Acetaminophen [Acetaminophen TAB] 650 mg PO Q4H PRN #1 tablet 10/05/16 10/15/16 Unknown Rx AtorvaSTATin [Lipitor] 40 mg PO QHS #30 tablet 10/05/16 10/15/16 Unknown Rx Butalb/Acetamin/Caff 50-325-40 1 tab PO Q4H PRN #30 tablet 10/05/16 10/15/16 Unknown Rx [Fioricet] Carvedilol [Coreg] 25 mg PO BID #60 tablet 10/05/16 10/15/16 Unknown Rx Clopidogrel [Plavix] 75 mg PO QDAY #30 tablet 10/05/16 10/15/16 Unknown Rx NIFEdipine XL [Procardia Xl] 60 mg PO QDAY #30 tablet 10/05/16 10/15/16 Unknown Rx Systane 1 drop OD BID 10/05/16 10/15/16 Unknown Rx hydrALAZINE [Apresoline TAB] 50 mg PO Q8HR #90 tablet 10/05/16 10/15/16 Unknown Rx ED Review of Systems ROS: Stated complaint: ABNORMAL BEHAVIOR Other details as noted in HPI Comment: All other systems reviewed and negative Constitutional: no symptoms reported Eyes: denies: eye pain, eye discharge, vision change ENT: denies: ear pain, throat pain Respiratory: denies: cough, shortness of breath, wheezing Cardiovascular: denies: chest pain, palpitations Endocrine: no symptoms reported Gastrointestinal: denies: abdominal pain, nausea, diarrhea Genitourinary: denies: urgency, dysuria, discharge Musculoskeletal: denies: back pain, joint swelling, arthralgia Skin: denies: rash, lesions Neurological: other (unresponsive). denies: headache Psychiatric: denies: anxiety, depression Hematological/Lymphatic: denies: easy bleeding, easy bruising Physical Exam - Physical Exam Vital Signs: Vital Signs 10/15/16 18:15 Temperature 98.2 F Pulse Rate 85 Respiratory 18 Rate Blood Pressure 150/72 O2 Sat by Pulse 98 Oximetry Physical Exam: GENERAL: The patient is well-developed well-nourished female lying on stretcher not appearing to be in acute distress. [] HEENT: Normocephalic. Atraumatic. Extraocular motions are intact. Patient has moist mucous membranes. NECK: Supple. No meningitic signs are noted. Trachea midline CHEST/LUNGS: Clear to auscultation. There is no respiratory distress noted. HEART/CARDIOVASCULAR: Regular. There is no tachycardia. There is no gallop rub or murmur. ABDOMEN: Abdomen is soft, nontender. Patient has normal bowel sounds. There is no abdominal distention. SKIN: There is no rash. There is no edema. There is no diaphoresis. NEURO: The patient is awake, alert, and oriented. The patient is cooperative. Cranial nerves II through XII grossly intact with exception of an asymmetric smile with slight drooping on the left. The patient has normal speech. Campaign Specialist 5 +/5 bilaterally. No pronator drift MUSCULOSKELETAL: There is no evidence of acute injury. ED Course Vital Signs 10/15/16 18:15 Temperature 98.2 F Pulse Rate 85 Respiratory 18 Rate Blood Pressure 150/72 O2 Sat by Pulse 98 Oximetry ED Medical Decision Making - Lab Data Result diagrams: 10/15/16 19:02 10/15/16 19:02 - Radiology Data Radiology results: report reviewed (CT head), image reviewed (CT head) CT head (read by radiologist)-no definite acute intracranial pathology seen by CT scan at this time. Similar to prior study. If symptoms persists consider MRI - Differential Diagnosis TIA, ICH, electrolyte imbalance, hypoglycemia Critical care attestation.: If time is entered above; I have spent that time in minutes in the direct care of this critically ill patient, excluding procedure time. ED Disposition Clinical Impression: Episode of unresponsiveness Disposition: OP ADMIT IP TO THIS HOSP Is pt being admited?: Yes Does the pt Need Aspirin: Yes Condition: Fair Referrals: PRIMARY CARE,MD [Primary Care Provider] - 3-5 Days Time of Disposition: 21:07 (hospitalist paged)
[2016-10-15 19:53] LABS: Creatine Kinase MB 1.1 ng/mL (0.0-4.0)
[2016-10-15 19:56] LABS: Albumin 3.6 g/dL (3.9-5); BUN/Creatinine Ratio 14.61; Basophils % (Auto) 0.5 % (0.0-1.8); Bilirubin,Total 0.3 mg/dL (0.1-1.2); Calcium 9.4 mg/dL (8.4-10.2); Chloride 101.3 mmol/L (98-107); Eosinophils % (Auto) 1.3 % (0.0-4.3); Hematocrit 38.6 % (30.3-42.9); Hemoglobin 12.7 gm/dl (10.1-14.3); Mean Corpuscular HGB Conc 33 % (30-34); Mean Corpuscular Hemoglobin 28 pg (28-32); Mean Corpuscular Volume 85 fl (79-97); Platelet Count 180 K/mm3 (140-440); Potassium 4.2 mmol/L (3.6-5.0); Red Blood Count 4.55 M/mm3 (3.65-5.03); Red Cell Distribution Width 14.8 % (13.2-15.2); Total Protein 7.1 g/dL (6.3-8.2); White Blood Count 5.7 K/mm3 (4.5-11.0)
[2016-10-15 20:05] LABS: INR 1.08 (0.87-1.13)
[2016-10-15 20:06] LABS: Partial Thromboplastin Time 28.3 Sec. (24.2-36.6)
--- NOTE | 2016-10-15 20:11 | Cat Scan Report ---
FINAL REPORT PROCEDURE: CT HEAD/BRAIN WO CON TECHNIQUE: Computerized tomography of the head was performed without contrast material. HISTORY: altered mental status COMPARISON: 09/19/2016 FINDINGS: Skull and scalp: Normal. Paranasal sinuses: Apparent prior right maxillary sinus surgery. Ventricles and subarachnoid spaces: Normal. Cerebrum: No evidence of hemorrhage, acute infarction or mass . Cerebellum and brainstem: No evidence of hemorrhage, acute infarction or mass. Vasculature: Intracranial atherosclerosis. No definitive hyperdense MCA sign seen at this time.. Comments: Diffuse cerebral atrophy with mild periventricular microischemic change and central lacunar infarct disease including but not limited to left thalamus right basal ganglia appearing of most likely chronic age. Head of caudate nuclei with micro lacunar infarcts evident. No definitive evidence of acute ischemic change however a subtle or very early lacunar infarct could be missed by early CT screening. If symptoms and or concern persists recommend MRI. Encephalomalacia or arachnoid cyst suspected in the right anterior middle cranial fossa temporal lobe area. IMPRESSION: No definite acute intracranial pathology seen by CT scan at this time Similar to prior study If symptoms persist consider MRI
--- NOTE | 2016-10-15 20:23 | Admit Criteria Form ---
Admission Criteria Documentation: MENTAL STATUS CHANGE Clinical Indications for Inpatient Care (Place 'X' for any and all applicable criteria): Ongoing inpatient care may be needed for 1 or more of the following(1)(2)(3)(5)( 6): [ ]I. Suspected serious etiology (eg, medical disorder, TUBE CUTTER event) of altered mental status [ ]II. Danger to self or others not manageable at lower level of care [ ]III. Grave disability (eg, inability to perform self care necessary at lower level of care) [ ]IV. Agitation or inappropriate behavior interfering with care for primary condition (eg, attempting to discontinue lines or drains prematurely, unable to cooperate with respiratory care) [ ]V. Delirium [A] [D][E] as described by 1 or more of the following(26): [ ]a) Delirium due to alcohol or sedative [F] withdrawal [ ]b) Delirium of uncertain etiology that has not responded to appropriate empiric treatment [ ]c) Delirium that prevents performance of a life-sustaining function (eg, feeding or hydrating oneself) [X ]. General contraindications and/or Inappropriate clinical situations for Observational Care in patients with Mental Status Change, when ANY ONE of the following is required: [ X]a) Prediction of prolongation of LOS based on ANY ONE of the following may be considered as a contraindication for observational care 2, 3, 4, 5, 6, 7, 8, 9, 10, 11 [X ]i) Age > 65 yrs. [ ]ii) Patient arriving by ambulance [ ]iii) Patient with high acuity [ ]iv) Patient requiring vital sign monitoring [ ]v) Patient on IV medication [ ]b) Systolic blood pressures greater than or equal to 180mmHg 3, 12 [ ]c) Patient with altered mental status including delirium and other alteration of consciousness, (3) [ ]d) Patient whose discharge disposition will be to a shelter home or rehabilitation home should not be managed in Emergency Department Observation Unit. CMS rule requires 3 days hospital stay before such placement.3,13 [ ]e) Patient with failure to thrive due to broad array of etiologies 3,16,17 [ ]f) Inability to ambulate 3,14 Extended stay beyond goal length of stay for the primary condition may be needed until ALL of the following are present(3)(5): [ ]a) Underlying medical etiology of mental status change is absent, or has been established and adequately treated [ ]b) Danger to self or others is absent or manageable at lower level of care. [ ]c) Behavior crisis management, including physical or chemical restraints, is not required or available at lower level of car [ ]d) Substance or alcohol withdrawal is absent or manageable at lower level of care. [ ]e) Behavioral symptoms (eg, agitation, somnolence, inappropriate behavior) are absent, or are manageable at lower level of care. The original [facility] content created by [facility] has been revised. The portions of the content which have been revised are identified through the use of italic text or in bold, and [facility] has neither reviewed nor approved the modified material. All other unmodified content is copyright [facility]. Please see references footnoted in the original [facility] edition 2016 Admission Criteria Met: Yes
[2016-10-15] MEDS ORDERED: ASPIRIN PO ONE (20:38)
[2016-10-15 21:13] LABS: Bilirubin,Urine NEG (Negative); Blood,Urine NEG (Negative); Ketones,Urine TR mg/dL (Negative); Leukocyte Esterase,Urine SM (Negative); Mucus,Urine FEW /HPF; Nitrite,Urine POS (Negative); Protein,Urine <15 mg/dL mg/dL (Negative); Urobilinogen,Urine < 2.0 mg/dL (<2.0)
[2016-10-15] MEDS ORDERED: DULCOLAX PR PRN (22:30)
[2016-10-15] MEDS ORDERED: MILK OF MAGNESIA PO PRN (22:30)
[2016-10-15] MEDS ORDERED: TYLENOL PO PRN ×2 (22:30)
[2016-10-15] MEDS ORDERED: SODIUM CHLORIDE FLUSH SYRINGE 10 ML IV PRN (22:30)
[2016-10-15] MEDS ORDERED: ZOFRAN IV PRN (22:30)
--- NOTE | 2016-10-15 22:34 | History and Physical Report ---
History of Present Illness Date of examination: 10/15/16 History of present illness: 86-year-old woman with a history of hypertension, CVA, hyperlipidemia was brought to the emergency room, she was noted to be drooling, and the food was found in her mouth. Difficult to obtain history PAST SURGICAL HISTORY:None SOCIAL HISTORY: Denies alcohol, tobacco, drug FAMILY HISTORY: Hypertension Medications and Allergies Allergies Allergy/AdvReac Type Severity Reaction Status Date / Time No Known Allergies Allergy Unverified 01/16/15 12:07 Home Medications Medication Instructions Recorded Confirmed Last Taken Type Acetaminophen [Acetaminophen TAB] 650 mg PO Q4H PRN #1 tablet 10/05/16 10/15/16 Unknown Rx AtorvaSTATin [Lipitor] 40 mg PO QHS #30 tablet 10/05/16 10/15/16 Unknown Rx Butalb/Acetamin/Caff 50-325-40 1 tab PO Q4H PRN #30 tablet 10/05/16 10/15/16 Unknown Rx [Fioricet] Carvedilol [Coreg] 25 mg PO BID #60 tablet 10/05/16 10/15/16 Unknown Rx Clopidogrel [Plavix] 75 mg PO QDAY #30 tablet 10/05/16 10/15/16 Unknown Rx NIFEdipine XL [Procardia Xl] 60 mg PO QDAY #30 tablet 10/05/16 10/15/16 Unknown Rx Systane 1 drop OD BID 10/05/16 10/15/16 Unknown Rx hydrALAZINE [Apresoline TAB] 50 mg PO Q8HR #90 tablet 10/05/16 10/15/16 Unknown Rx Exam - Physical Exam Narrative exam: Gen. appearance: Patient lying in bed, no apparent distress HEENT: Normocephalic, atraumatic, pupils equally round and reactive to light, extraocular movement intact, and no sclericterus,. No JVD or thyromegaly or nodule,neck supple, no carotid bruit ,mucous membranes moist, no exudate or erythema Heart: S1, S2, regular rate and rhythm Lungs: Clear to auscultation bilaterally, breathing comfortable Abdomen: Positive bowel sounds, nontender, nondistended, no organomegaly Extremity: No edema, cyanosis, clubbing Skin: No rash, nodules, warm, dry Neuro:difficult to asse\ss - Constitutional Vitals: Temp Pulse Resp BP Pulse Ox 98.2 F 85 20 150/72 98 10/15/16 18:15 10/15/16 18:15 10/15/16 21:13 10/15/16 18:15 10/15/16 21:13 Results - Labs CBC & Chem 7: 10/16/16 05:20 10/16/16 05:20 Labs: Abnormal lab results 10/15/16 10/15/16 10/15/16 Range/Units 19:02 19:02 20:52 Lymph # 1.1 L (1.2-5.4) K/mm3 Seg Neutrophils % 71.3 H (40.0-70.0) % BUN 19 H (7-17) mg/dL Creatinine 1.3 H (0.7-1.2) mg/dL Glucose 101 H (65-100) mg/dL Albumin 3.6 L (3.9-5) g/dL Urine WBC (Auto) 19.0 H (0.0-6.0) /HPF Assessment and Plan Possible TIA versus CVA Hypertension Hyperlipidemia History of CVA Admit to medicine Do neurochecks, swallow screen Obtain MRI of the head, carotid Doppler, echo Start aspirin, statin Consult neurology, physical and occupational therapy Continue appropriate outpatient medications
[2016-10-16] MEDS ORDERED: SODIUM CHLORIDE FLUSH SYRINGE 10 ML IV PRN (00:12)
[2016-10-16] MEDS ORDERED: TYLENOL PO PRN (00:12)
[2016-10-16 05:49] LABS: Basophils % (Auto) 0.6 % (0.0-1.8); Eosinophils % (Auto) 2.1 % (0.0-4.3); Hematocrit 37.9 % (30.3-42.9); Hemoglobin 12.2 gm/dl (10.1-14.3); Mean Corpuscular HGB Conc 32 % (30-34); Mean Corpuscular Hemoglobin 27 pg (28-32); Mean Corpuscular Volume 85 fl (79-97); Platelet Count 177 K/mm3 (140-440); Red Blood Count 4.47 M/mm3 (3.65-5.03); Red Cell Distribution Width 14.4 % (13.2-15.2); White Blood Count 5.2 K/mm3 (4.5-11.0)
[2016-10-16 06:01] LABS: Anion Gap 19 mmol/L; Blood Urea Nitrogen 17 mg/dL (7-17); Calcium 9.2 mg/dL (8.4-10.2); Carbon Dioxide 23 mmol/L (22-30); Glucose 85 mg/dL (65-100); Potassium 3.7 mmol/L (3.6-5.0); Sodium 140 mmol/L (137-145)
[2016-10-16 06:10] LABS: Cholesterol 167 mg/dL (50-199); HDL Cholesterol 59 mg/dL (40-59); LDL Cholesterol,Direct 89 mg/dL (50-130); Triglycerides 98 mg/dL (2-149)
[2016-10-16] MEDS ORDERED: LOVENOX SUB-Q SCH (10:00)
[2016-10-16] MEDS ORDERED: ASPIRIN PO SCH (10:00)
--- NOTE | 2016-10-16 12:22 | Event Note ---
Date: 10/16/16 I attempted to see this patient between my scheduled coverage time of 8 AM-12 PM but they were not present in the floor room. I will return to staff in consultation 10/17.
--- NOTE | 2016-10-16 12:41 | Magnetic Resonance Report ---
MRI of the brain without contrast. History: Stroke. Procedure: Routine brain protocol. Findings: Comparison is made to previous study performed on September 20, 2016. Since the prior study, there are multiple new areas of restricted diffusion in the posterior occipital lobes bilaterally. These are small rounded signal abnormalities a few of which are coalescent in the left posterior occipital lobe. Additionally, there is a new focus of restricted diffusion in the inferior left cerebral hemisphere, and 2 new areas of restricted diffusion are seen in the thalami bilaterally. These all measure less than 1 cm in diameter. Subacute infarcts in the right cerebral hemisphere are again noted. The ventricles are unremarkable. There is no shift of the midline. No extra-axial collections are seen. Senescent changes are again noted. Impression: Multiple new acute infarcts in the occipital lobes and thalami bilaterally as well as the left cerebellar hemisphere. Subacute infarcts in the right cerebellar hemisphere are noted. Comment: These findings were given to the patient's nurse Shahana at 12:30 PM on October 16, 2016.
--- NOTE | 2016-10-16 14:07 | Progress Note ---
Assessment and Plan A 87-year-old -[place] female was seen and evaluated this morning, patient is alert and oriented to self and date of otherwise seems confused and cooperative. Patient was brought to the emergency room for drooling, and kept food pocketed in her mouth. Patient was admitted to medical floor CVA versus TIA. Ischemic Stroke has been confirmed with MRI of the head. Neurology already on her case. CVA Hypertension Hyperlipidemia History of CVA Continue neurochecks, allow permissive hypertension per protocol, speech and swallow screen ordered Obtained MRI of the head and neurology consult in progress, carotid Doppler, echo Continue aspirin, statin Awaiting evaluation and recommendation of Consult neurology, physical and occupational therapy Continue appropriate outpatient medications Subjective Date of service: 10/16/16 Principal diagnosis: CVA Interval history: A 87-year-old -[place] female was seen and evaluated this morning, patient is alert and oriented to self and date of otherwise seems confused and cooperative. Patient was brought to the emergency room for drooling, and kept food pocketed in her mouth. Patient was admitted to medical floor CVA versus TIA. Ischemic stroke has been confirmed with MRI of the head. Neurology consult already on her case. Objective - Constitutional Vitals: Vital Signs - 12hr 10/16/16 10/16/16 10/16/16 04:06 08:43 10:00 Temperature 98.2 F Pulse Rate [ 81 79 From Monitor] Pulse Rate [ 81 Left Radial] Pulse Rate [ 81 Right Radial] Pulse Rate [ 81 Right] Respiratory 20 18 Rate Blood Pressure [Left Arm] Blood Pressure 166/77 [Right Arm] O2 Sat by Pulse 97 100 100 Oximetry 10/16/16 10:05 Temperature 98.0 F Pulse Rate [ 79 From Monitor] Pulse Rate [ 79 Left Radial] Pulse Rate [ 79 Right Radial] Pulse Rate [ 79 Right] Respiratory 20 Rate Blood Pressure 148/87 [Left Arm] Blood Pressure 148/87 [Right Arm] O2 Sat by Pulse Oximetry General appearance: Present: no acute distress, well-nourished - EENT Eyes: PERRL, EOM intact ENT: hearing intact, clear oral mucosa - Neck Neck: supple, normal ROM - Respiratory Respiratory effort: normal Respiratory: bilateral: CTA - Breasts Breasts: normal - Cardiovascular Rhythm: regular Heart Sounds: Present: S1 & S2. Absent: gallop, rub Extremities: pulses intact, No edema, normal color, Full ROM - Gastrointestinal General gastrointestinal: Present: soft, non-tender, non-distended, normal bowel sounds - Genitourinary Female genitourinary: normal - Integumentary Integumentary: clear, warm, dry - Musculoskeletal Musculoskeletal: 1, strength equal bilaterally - Allied health notes Allied health notes reviewed: nursing - Labs CBC & Chem 7: 10/16/16 05:20 10/16/16 05:20 Labs: Abnormal lab results 10/16/16 Range/Units 05:20 MCH 27 L (28-32) pg [place] % (Auto) 7.9 H (0.0-7.3) % - Imaging and cardiology MRI - head: image reviewed (multiple new infarcts in the occipital lobes and thalami bilaterally. Subacute infarct in the right cerebellar hemisphere noted)
[2016-10-16] MEDS: LOVENOX SUB-Q SCH (14:46)
[2016-10-16] MEDS: APRESOLINE IV PRN (18:40)
[2016-10-16] MEDS ORDERED: COREG PO SCH (22:00)
[2016-10-16] MEDS ORDERED: APRESOLINE PO SCH (22:00)
[2016-10-16] MEDS: ZOCOR PO SCH (22:13)
[2016-10-17] MEDS: APRESOLINE IV PRN ×2 (05:22→09:47)
[2016-10-17] MEDS: LOVENOX SUB-Q SCH (09:48)
[2016-10-17] MEDS: HCTZ PO SCH (09:48)
[2016-10-17] MEDS: PLAVIX PO SCH (09:48)
[2016-10-17] MEDS ORDERED: PROCARDIA XL PO SCH (10:00)
[2016-10-17] MEDS ORDERED: NORMODYNE IV ONE (11:00)
--- NOTE | 2016-10-17 11:23 | Consultation ---
History of Present Illness Consult date: 10/17/16 Requesting physician: LAURA HOOD Reason for Consult: stroke Chief complaint: no complaints History of present illness: 86 YO F Hx HTN/HLD/stroke unclear details or residual on ASA p/w wake up difficulty ambulating seen initially on 09/20 when on exam pt w/ R sided ataxia and slight UE hemiparesis. MRI Brain confirmed R cerebellar infarct PICA distribution stroke. CDs neg. LDL 66. MRA Head anterior circulation athero. She was transitioned onto Plavix , followed up with PCP/Neuro and had an episode of confusion, drooling on 10/15 1 PM. Sx lasted 1 hrs and resolved. There were no clear aggravating, relieving or temporal factors. Severity was enough to cause daughter concern.. Past History Past Medical History: hypertension, stroke Past Surgical History: No surgical history Social history: lives with family. denies: smoking, alcohol abuse, prescription drug abuse Family history: hypertension Medications and Allergies Allergies Allergy/AdvReac Type Severity Reaction Status Date / Time No Known Allergies Allergy Unverified 01/16/15 12:07 Home Medications Medication Instructions Recorded Confirmed Last Taken Type Acetaminophen [Acetaminophen TAB] 650 mg PO Q4H PRN #1 tablet 10/05/16 10/15/16 Unknown Rx AtorvaSTATin [Lipitor] 40 mg PO QHS #30 tablet 10/05/16 10/15/16 Unknown Rx Butalb/Acetamin/Caff 50-325-40 1 tab PO Q4H PRN #30 tablet 10/05/16 10/15/16 Unknown Rx [Fioricet] Carvedilol [Coreg] 25 mg PO BID #60 tablet 10/05/16 10/15/16 Unknown Rx Clopidogrel [Plavix] 75 mg PO QDAY #30 tablet 10/05/16 10/15/16 Unknown Rx NIFEdipine XL [Procardia Xl] 60 mg PO QDAY #30 tablet 10/05/16 10/15/16 Unknown Rx Systane 1 drop OD BID 10/05/16 10/15/16 Unknown Rx hydrALAZINE [Apresoline TAB] 50 mg PO Q8HR #90 tablet 10/05/16 10/15/16 Unknown Rx Active Meds: Active Medications Acetaminophen (Tylenol) 650 mg PO Q4H PRN PRN Reason: Pain MILD(1-3)/Fever >100.5/NDIAYE Atorvastatin Calcium (Lipitor) 40 mg PO QHS [facility] Last Admin: 10/16/16 22:13 Dose: Not Given Bisacodyl (Dulcolax) 10 mg SD QDAY PRN PRN Reason: Constipation unrelieved by MOM Carvedilol (Coreg) 25 mg PO BID [facility] Clopidogrel Bisulfate (Plavix) 75 mg PO QDAY [facility] Last Admin: 10/17/16 09:48 Dose: 75 mg Enoxaparin Sodium (Lovenox) 40 mg SUB-Q QDAY@1000 [facility] Last Admin: 10/17/16 09:48 Dose: 40 mg Hydralazine HCl (Apresoline) 10 mg IV Q4HR PRN PRN Reason: Hypertension Last Admin: 10/17/16 09:47 Dose: 10 mg Hydralazine HCl (Apresoline) 100 mg PO TID [facility] Hydrochlorothiazide (Hctz) 25 mg PO QDAY [facility] Last Admin: 10/17/16 09:48 Dose: 25 mg Ceftriaxone Sodium (Rocephin/Ns 1 Gm/50 Ml) 1 gm in 50 mls @ 100 mls/hr IV Q24HR [facility] PRN Reason: Protocol Magnesium Hydroxide (Milk Of Magnesia) 30 ml PO Q4H PRN PRN Reason: Constipation Ondansetron HCl (Zofran) 4 mg IV Q8H PRN PRN Reason: N/V unrelieved by Reglan Simvastatin (Zocor) 20 mg PO QHS [facility] Last Admin: 10/16/16 22:13 Dose: Not Given Sodium Chloride (Sodium Chloride Flush Syringe 10 Ml) 10 ml IV PRN PRN PRN Reason: LINE FLUSH Review of Systems ROS unobtainable: due to mental status Neurological: weakness, confusion, gait dysfunction, motor disturbance, no paralysis, no parathesias, no numbness, no tingling, no seizures, no syncope, no headaches, no change in speech, no sensory deficit Physical Examination - Vital Signs Vital Signs: Vital Signs BP 150/72 10/15/16 18:03 - Constitutional General appearance: chronically ill - EENT EENT: Present: ATNC, PERRL, mucous membranes moist, hearing intact, vision intact - Respiratory Respiratory: Present: chest non-tender, normal breath sounds, no respiratory distress - Cardiovascular Cardiovascular: Present: regular rate Extremities: Present: no peripheral edema bilatateraly, no clubbing, cyanosis, no inflammation, no ischemia or petechiae - Gastrointestinal Gastrointestinal: Present: normoactive bowel sounds, soft, non-distended - Integumentary Integumentary: Present: normal - Neurologic Cranial nerve examination: PERRL, EOMI, VFF, V1/V2/V3 grossly intact, face symmetric, tongue midline, intact, Intact Vestibulo-ocular r, intact corneal reflex, normal palatal elevation, other (disorientation to age/month) Speech examination: intact Sensorimotor examination: hemiparesis (faint RUE) Detailed motor examination: grossly full strength in Motor examination - right side: 4/5: biceps, triceps, wrist flexion, wrist extension, field artillery cannoneer, hip flexors, knee extensors, dorsiflexion, toe extension (EHL) , plantarflexion Motor examination - left side: 4/5: biceps, triceps, wrist flexion, wrist extension, field artillery cannoneer, hip flexors, knee extensors, dorsiflexion, toe extension (EHL) , plantarflexion Detailed sensory examination: intact, light touch, temperature Reflex and gait examination: intact Reflexes: 0: ankle, 2+: bicep, knee, tricep Cerebellar examination: ataxia (on R), dysmetria (on R), dysdiadochokinesia (on R) - Musculoskeletal Musculoskeletal: Present: no fluid collection, no pain, normal range of motion - Psychiatric Psychiatric: Present: cooperative Results - Laboratory Findings CBC and BMP: 10/16/16 05:20 10/16/16 05:20 Abnormal Lab Findings: Abnormal Labs 10/16/16 05:20 MCH 27 L [place] % (Auto) 7.9 H Assessment and Plan 86 YO F Hx HTN/HLD/suspected mild-mod dementia per daughter/distant stroke unclear details or residual on ASA p/w wake up difficulty ambulating seen initially on 09/20 when on exam pt w/ R sided ataxia and slight UE hemiparesis. MRI Brain 09/20 confirmed R cerebellar infarct PICA distribution stroke. CDs neg. LDL 66. MRA Head anterior circulation athero. She was transitioned onto Plavix followed up with PCP/Neuro and was stable until 10/16 episode of confusion and drooling lasting 1 hr then resolved. Repeat MRI Brain 10/16 reveals additional areas of infarct in multifocal posterior circulation which is either recurrent stroke vs. evolution of prior stroke in same vascular distribution. She also has ? +UA. Plan and Recommendation: 1. No indication for pharmacologic thrombolysis with IV tPA or mechanical thrombectomy due to last known normal > 6 hrs from presentation. Current NIHSS 5. 2. Telemetry bed w/ Q4 hour neuro checks 3. Vascular Imaging: CTA H/N 4. TTE to eval for possible cardiac source of embolism 5. 30day aTele 6. Autoregulate SBP to goal 120-160 as pt is outside permissive HTN window. 7. Secondary stroke prevention: Add back ASA 81mg QDay, cont Plavix 75mg QDay- pt did report 1 episode of ? urine blood in August but not persistent. Advise to monitor as outpt as well. High dose statin therapy (Crestor 20mg or 40mg OR Lipitor 40mg or 80mg Daily OR Zocor 40mg QDay) for goal LDL < 70.. 8. F/E/N: isotonic IVF prn, prn replete, bedside speech/swallow eval prior to PO intake. 9. DVT Prophylaxis 10. Stroke education, PT/OT/Speech Therapy consults, CM evaluation 11. For any changes in neurologic status, pls obtain STAT CTH w/o contrast and call neurology 12. Neuro clear for D/C if CTA H/N and TTE findings nonacute.
[2016-10-17] MEDS ORDERED: NACL ONE ×2 (11:24→15:06)
[2016-10-17] MEDS: ROCEPHIN/NS 1 GM/50 ML 1 GM/50 ML BAG IV SCH (11:28)
--- NOTE | 2016-10-17 14:56 | Progress Note ---
Assessment and Plan Assessment and plan: Patient is a 86-year-old female with a history of recent CVA recently discharged from the hospital with Plavix. Also history of hypertension hyperlipidemia moderate dementia. And with a residual left hemiparesis. He presents to the hospital today with complaints made by this daughter of patient appeared more confused and also holding her food in her mouth without swallowing. Her medicine the patient was noted with drooling. Current insulin urologist exam 09/20 when on exam pt w/ R sided ataxia and slight UE hemiparesis. MRI Brain 09/20 confirmed R cerebellar infarct PICA distribution stroke. CDs neg. LDL 66. MRA Head anterior circulation athero. She was transitioned onto Plavix followed up with PCP/Neuro Repeat MRI Brain 10/16 reveals additional areas of infarct in multifocal posterior circulation which is either recurrent stroke vs. evolution of prior stroke in same vascular distribution. 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 Will place on Coreg 25 mg twice a day and hydralazine 100 mg 3 times a day and hold off on nifedipine. * Neurology input noted. Await echocardiogram. Patient may benefit from a 30 day time and monitor at home. * Start patient on empiric antibiotics, check urine culture. * Continue Plavix and aspirin 81 mg as patient failed Plavix only. Continue simvastatin. * Physical therapy, additional therapy, speech therapy evaluation and treat. * DVT and GI prophylaxis * Plan of care discussed with patient and also with daughter who is at the bedside. History Interval history: Patient seen and examined this morning in no acute distress still with intermittent waxing and waning confusion. No other adverse events reported by nursing staff Hospitalist Physical - Physical exam Narrative exam: VITAL SIGNS: Reviewed. GENERAL: The patient appeared well nourished and normally developed. Vital signs as documented. HEAD: No signs of head trauma. EYES: Pupils are equal. Extraocular motions intact. EARS: Hearing grossly intact. MOUTH: Oropharynx is normal. NECK: No adenopathy, no JVD. CHEST: Chest with clear breath sounds bilaterally. No wheezes, rales, or rhonchi. CARDIAC: Regular rate and rhythm. S1 and S2, without murmurs, gallops, or rubs. VASCULAR: No Edema. Peripheral pulses normal and equal in all extremities. ABDOMEN: Soft, without detectable tenderness. No sign of distention. No rebound or guarding, and no masses palpated. Bowel Sounds normal. MUSCULOSKELETAL: Good range of motion of all major joints. Extremities without clubbing, cyanosis or edema. NEUROLOGIC EXAM: Alert and oriented x 3. No focal deficits sensory deficits motor strength is 4 over 5 on the left and 5 for far from the right. Speech normal. Follows commands. PSYCHIATRIC: Mood normal. SKIN: No rash or lesions. - Constitutional Vitals: Temp Pulse Resp BP Pulse Ox 98.0 F 88 16 174/71 97 10/17/16 12:00 10/17/16 12:00 10/17/16 12:00 10/17/16 12:00 10/17/16 12:00 General appearance: Present: no acute distress, well-nourished Results - Labs CBC & Chem 7: 10/16/16 05:20 10/16/16 05:20 Labs: Laboratory Last Values WBC 5.2 K/mm3 (4.5-11.0) 10/16/16 05:20 RBC 4.47 M/mm3 (3.65-5.03) 10/16/16 05:20 Hgb 12.2 gm/dl (10.1-14.3) 10/16/16 05:20 Hct 37.9 % (30.3-42.9) 10/16/16 05:20 MCV 85 fl (79-97) 10/16/16 05:20 MCH 27 pg (28-32) L 10/16/16 05:20 MCHC 32 % (30-34) 10/16/16 05:20 RDW 14.4 % (13.2-15.2) 10/16/16 05:20 Plt Count 177 K/mm3 (140-440) 10/16/16 05:20 Lymph % (Auto) 28.7 % (13.4-35.0) 10/16/16 05:20 [place] % (Auto) 7.9 % (0.0-7.3) H 10/16/16 05:20 Eos % (Auto) 2.1 % (0.0-4.3) 10/16/16 05:20 Baso % (Auto) 0.6 % (0.0-1.8) 10/16/16 05:20 Lymph # 1.5 K/mm3 (1.2-5.4) 10/16/16 05:20 [place] # 0.4 K/mm3 (0.0-0.8) 10/16/16 05:20 Eos # 0.1 K/mm3 (0.0-0.4) 10/16/16 05:20 Baso # 0.0 K/mm3 (0.0-0.1) 10/16/16 05:20 Seg Neutrophils % 60.7 % (40.0-70.0) 10/16/16 05:20 Seg Neutrophils # 3.2 K/mm3 (1.8-7.7) 10/16/16 05:20 PT 14.6 Sec. (12.2-14.9) 10/15/16 19:02 INR 1.08 (0.87-1.13) 10/15/16 19:02 APTT 28.3 Sec. (24.2-36.6) 10/15/16 19:02 Sodium 140 mmol/L (137-145) 10/16/16 05:20 Potassium 3.7 mmol/L (3.6-5.0) 10/16/16 05:20 Chloride 102.0 mmol/L (98-107) 10/16/16 05:20 Carbon Dioxide 23 mmol/L (22-30) 10/16/16 05:20 Anion Gap 19 mmol/L 10/16/16 05:20 BUN 17 mg/dL (7-17) 10/16/16 05:20 Creatinine 1.0 mg/dL (0.7-1.2) 10/16/16 05:20 Estimated GFR > 60 ml/min 10/16/16 05:20 BUN/Creatinine Ratio 17.00 % 10/16/16 05:20 Glucose 85 mg/dL (65-100) 10/16/16 05:20 Calcium 9.2 mg/dL (8.4-10.2) 10/16/16 05:20 Total Bilirubin 0.30 mg/dL (0.1-1.2) 10/15/16 19:02 AST 20 units/L (5-40) 10/15/16 19:02 ALT 17 units/L (7-56) 10/15/16 19:02 Alkaline Phosphatase 44 units/L (35-129) 10/15/16 19:02 Ammonia 30.0 umol/L (25-60) 10/15/16 19:02 Total Creatine Kinase 50 units/L (30-135) 10/15/16 19:02 CK-MB (CK-2) 1.1 ng/mL (0.0-4.0) 10/15/16 19:02 CK-MB (CK-2) Rel Index 2.2 (0-4) 10/15/16 19:02 Troponin T < 0.010 ng/mL (0.00-0.029) 10/15/16 19:02 Total Protein 7.1 g/dL (6.3-8.2) 10/15/16 19:02 Albumin 3.6 g/dL (3.9-5) L 10/15/16 19:02 Albumin/Globulin Ratio 1.0 % 10/15/16 19:02 Triglycerides 98 mg/dL (2-149) 10/16/16 05:20 Cholesterol 167 mg/dL (50-199) 10/16/16 05:20 LDL Cholesterol Direct 89 mg/dL (50-130) 10/16/16 05:20 HDL Cholesterol 59 mg/dL (40-59) 10/16/16 05:20 Cholesterol/HDL Ratio 2.83 % 10/16/16 05:20 TSH 0.676 mlU/mL (0.270-4.200) 10/15/16 19:02 Free T4 1.23 ng/dL (0.76-1.46) 10/15/16 19:02 Urine Color Yellow (Yellow) 10/15/16 20:52 Urine Turbidity Clear (Clear) 10/15/16 20:52 Urine pH 6.0 (5.0-7.0) 10/15/16 20:52 Ur Specific [place] 1.013 (1.003-1.030) 10/15/16 20:52 Urine Protein <15 mg/dl mg/dL (Negative) 10/15/16 20:52 Urine Glucose (UA) Neg mg/dL (Negative) 10/15/16 20:52 Urine Ketones Tr mg/dL (Negative) 10/15/16 20:52 Urine Blood Neg (Negative) 10/15/16 20:52 Urine Nitrite Pos (Negative) 10/15/16 20:52 Urine Bilirubin Neg (Negative) 10/15/16 20:52 Urine Urobilinogen < 2.0 mg/dL (<2.0) 10/15/16 20:52 Ur Leukocyte Esterase Sm (Negative) 10/15/16 20:52 Urine WBC (Auto) 19.0 /HPF (0.0-6.0) H 10/15/16 20:52 Urine RBC (Auto) 2.0 /HPF (0.0-6.0) 10/15/16 20:52 U Epithel Cells (Auto) < 1.0 /HPF (0-13.0) 10/15/16 20:52 Hyaline Casts 1 /LPF 10/15/16 20:52 Urine Mucus Few /HPF 10/15/16 20:52 - Imaging and Cardiology MRI - head: image reviewed (multiple infarct)
--- NOTE | 2016-10-17 17:29 | Cat Scan Report ---
FINAL REPORT PROCEDURE: CT ANGIO HEAD TECHNIQUE: Computerized tomographic angiography of the head was performed during the IV injection of iodinated nonionic contrast including image processing. The image data was postprocessed using 2-dimensional multiplanar reformatted (MPR) and 3-dimensional (MIP and/or volume rendered) techniques. HISTORY: post circulation stroke COMPARISON: No prior studies are available for comparison. FINDINGS: Atherosclerotic changes are seen in the carotid siphons bilaterally. Calcified and noncalcified plaques are visualized.. On the left the carotid siphon is narrowed approximately 40 percent, on the right the carotid siphon appears to be narrowed approximately 60 percent. A1 segments and anterior cerebral arteries bilaterally appear widely patent. Middle cerebral arteries also appear widely patent. No aneurysm or vascular malformations are identified. The vertebral arteries appear patent. The left side is dominant. Basilar artery also appears to be widely patent. Posterior cerebral arteries appear widely patent bilaterally. Dural sinuses appear patent. The ventricles sulcal pattern and fissures are prominent consistent with moderate atrophy. Mild gliosis appears to be present. No abnormal enhancing lesions are identified. Old lacunar infarct visualized left thalamus and right basal ganglia unchanged from the prior CT scan of the brain 10/15/2016 IMPRESSION: Anterior and posterior circulation appear intact. There is approximately 60 percent stenosis of the right carotid siphon and 40 percent stenosis of the left carotid siphon. Anterior posterior circulation otherwise appear intact. Old lacunar infarcts again visualize left thalamus and right basal ganglia.
--- NOTE | 2016-10-17 17:39 | Cat Scan Report ---
FINAL REPORT PROCEDURE: CT ANGIO NECK TECHNIQUE: Computerized tomographic angiography of the neck was performed after the IV injection of iodinated nonionic contrast including image processing. The image data was postprocessed using 2-dimensional multiplanar reformatted (MPR) and 3-dimensional (MIP and/or volume rendered) techniques. HISTORY: post circulation stroke COMPARISON: The vertebral arteries bilaterally are patent. There is high-grade stenosis visualized in the proximal right vertebral artery seen on image 74 series 201. Moderate stenosis visualized in the proximal left vertebral artery seen on image 74 image 201 vertebral arteries otherwise are patent. The origin of the right common carotid artery is widely patent. There is moderate tortuosity of the right common carotid artery. Small calcified plaques are visualized in the right carotid bulb extending into the origin of the right internal carotid artery without significant stenosis. The left common carotid artery is patent. There is mild stenosis just distal to the origin of the common carotid artery. Minimal plaquing is seen in the origin of the left external carotid artery. The internal carotid artery is widely patent. Note: Assessment of carotid artery stenosis is based on measurement of the distal internal carotid artery diameter as the denominator for stenosis calculations and the [place] Symptomatic Carotid Endarterectomy Trial (NASCET) stenosis criteria . CPT 3100F Thyroid gland appears diffusely enlarged secondary to numerous nonspecific low-density nodules throughout the right and left lobes of the thyroid gland. FINDINGS: High-grade stenosis visualized proximal right vertebral artery. There it stenosis visualized proximal left vertebral artery. Vertebral arteries otherwise appear patent. Mild atherosclerotic changes seen in the carotid arteries as described without high-grade stenosis identified. Aortic arch: Normal . Right carotid artery: Normal . Left carotid artery: Normal . Vertebral arteries: Normal . IMPRESSION: Normal Examination
[2016-10-17] MEDS: COREG PO SCH (21:22)
[2016-10-17] MEDS: APRESOLINE PO SCH (21:22)
[2016-10-17] MEDS: ZOCOR PO SCH (21:23)
[2016-10-18] MEDS: HALFPRIN EC PO SCH ×2 (08:10→10:14)
[2016-10-18] MEDS: APRESOLINE PO SCH ×3 (08:10→16:59)
--- NOTE | 2016-10-18 09:13 | Event Note ---
Date: 10/18/16 CTA H/N reviewed and identified high grade R vert stenosis-likely mechanism for stroke artery to artery embolism from posterior circulation athero. TTE neg. 86 YO F Hx HTN/HLD/suspected mild-mod dementia per daughter/distant stroke unclear details or residual on ASA p/w wake up difficulty ambulating seen initially on 09/20 when on exam pt w/ R sided ataxia and slight UE hemiparesis. MRI Brain 09/20 confirmed R cerebellar infarct PICA distribution stroke. CDs neg. LDL 66. MRA Head anterior circulation athero. She was transitioned onto Plavix followed up with PCP/Neuro and was stable until 10/16 episode of confusion and drooling lasting 1 hr then resolved. Repeat MRI Brain 10/16 reveals additional areas of infarct in multifocal posterior circulation which is either recurrent stroke vs. evolution of prior stroke in same vascular distribution. She also has ? +UA. Plan and Recommendation: 1. No indication for pharmacologic thrombolysis with IV tPA or mechanical thrombectomy due to last known normal > 6 hrs from presentation. Current NIHSS 5. 2. Telemetry bed w/ Q4 hour neuro checks 3. 30day aTele 4. Autoregulate SBP to goal 120-160 as pt is outside permissive HTN window. 5. Secondary stroke prevention: Add back ASA 81mg QDay, cont Plavix 75mg QDay- pt did report 1 episode of ? urine blood in August but not persistent. Advise to monitor as outpt as well. High dose statin therapy (Crestor 20mg or 40mg OR Lipitor 40mg or 80mg Daily OR Zocor 40mg QDay) for goal LDL < 70.. 6. F/E/N: isotonic IVF prn, prn replete, bedside speech/swallow eval prior to PO intake. 7. DVT Prophylaxis 8. Stroke education, PT/OT/Speech Therapy consults, CM evaluation 9. For any changes in neurologic status, pls obtain STAT CTH w/o contrast and call neurology 10. Neuro clear for D/C if remains stable
--- NOTE | 2016-10-18 09:28 | Discharge Summary ---
Providers - Providers Date of Admission: 10/15/16 22:30 Date of discharge: 10/18/16 Attending physician: ANN JOHNSON MD 10/16/16 Consult to Physician [CONS] Routine Consulting Provider: KEILA COLUNGA Reason For Exam: cva Place consult to:: Dr. Colunga Notified:: Shahana ADAMS Phone number called:: Ext. [phone] Was contact made?: Yes If yes, spoke with:: Voicemail with consult info left for Lalita Rock Time called:: 08:49 10/16/16 14:17 Speech Therapy Evaluation and Treat [CONS] Stat Reason For Exam: CVA 10/17/16 05:10 Consult to Dietitian/Nutrition [CONS] Routine Physician Instructions: Reason For Exam: Reason for Consult: Poor oral intake 10/17/16 11:05 Consult to Case Management [CONS] Routine Services Needed at Discharge: DME Equipment Notified:: Case management-Corine Time called:: 11:33 Additional Physician Instructions: hospital bed Primary care physician: [employer] Hospitalization Condition: Stable Hospital course: Patient is a 86-year-old female with a history of recent CVA recently discharged from the hospital with Plavix. Also history of hypertension hyperlipidemia moderate dementia. And with a residual left hemiparesis. He presents to the hospital today with complaints made by this daughter of patient appeared more confused and also holding her food in her mouth without swallowing. Her medicine the patient was noted with drooling. Current insulin urologist exam 09/20 when on exam pt w/ R sided ataxia and slight UE hemiparesis. MRI Brain 09/20 confirmed R cerebellar infarct PICA distribution stroke. CDs neg. LDL 66. MRA Head anterior circulation athero. She was transitioned onto Plavix followed up with PCP/Neuro Repeat MRI Brain 10/16 reveals additional areas of infarct in multifocal posterior circulation which is either recurrent stroke vs. evolution of prior stroke in same vascular distribution. 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 Will place on Coreg 25 mg twice a day and hydralazine 100 mg 3 times a day and hold off on nifedipine. * Neurology input noted. Await echocardiogram. Patient may benefit from a 30 day time and monitor at home. * Start patient on empiric antibiotics, check urine culture. * Continue Plavix and aspirin 81 mg as patient failed Plavix only. Continue simvastatin. * Physical therapy, additional therapy, speech therapy evaluation and treat. * DVT and GI prophylaxis * Plan of care discussed with patient and also with daughter who is at the bedside. Disposition: DC/[place]-[facility] Time spent for discharge: 35 mins Core Measure Documentation - Palliative Care Palliative Care/ Comfort Measures: Not Applicable - Core Measures Any of the following diagnoses?: stroke - VTE Discharge Requirements Deep Vein Thrombosis/Pulmonary Embolism Present on Admission: No - Stroke Discharge Requirements Statin for LDL = or >70 mg/dl on DC: Yes Anticoag for atrial fib/atrial flutter: Not Applicable Antithrombotic for ischemic stroke: Yes Exam - Constitutional Vitals: Temp Pulse Resp BP Pulse Ox 98.2 F 94 H 20 157/72 98 10/18/16 04:00 10/18/16 04:00 10/18/16 04:00 10/18/16 04:00 10/18/16 04:00 Plan Activity: advance as tolerated, fall precautions Diet: low fat Special Instructions: physical therapy, occupational therapy, home health RN Additional Instructions: Follow with neurologist in 1 week. Follow up with: PRIMARY CARE, [Primary Care Provider] - 3-5 Days Prescriptions: Simvastatin [Zocor TAB] 20 mg PO QHS #30 tablet Aspirin EC [Aspirin Enteric Coated TAB] 81 mg PO QDAY #30 tablet Ciprofloxacin HCl [Ciprofloxacin TAB] 500 mg PO BID #10 tablet hydrALAZINE [Apresoline TAB] 100 mg PO TID #30 tab Hydrochlorothiazide [HCTZ] 12.5 mg PO QDAY #30 capsule
[2016-10-18] MEDS: ROCEPHIN/NS 1 GM/50 ML 1 GM/50 ML BAG IV SCH (10:13)
[2016-10-18] MEDS: COREG PO SCH (10:14)
[2016-10-18] MEDS: HCTZ PO SCH (10:14)
[2016-10-18] MEDS: LOVENOX SUB-Q SCH (10:14)
[2016-10-18] MEDS: PLAVIX PO SCH (10:15)
[2016-10-18] MEDS ORDERED: APRESOLINE PO SCH (14:00)
--- NOTE | 2016-10-18 14:02 | Discharge Summary ---
Providers - Providers Date of Admission: 10/15/16 22:30 Date of discharge: 10/18/16 Attending physician: ANN JOHNSON MD 10/16/16 Consult to Physician [CONS] Routine Consulting Provider: KEILA COLUNGA Reason For Exam: cva Place consult to:: Dr. Colunga Notified:: Shahana ADAMS Phone number called:: [phone]. [phone] Was contact made?: Yes If yes, spoke with:: Voicemail with consult info left for Lalita Rock Time called:: 08:49 10/16/16 14:17 Speech Therapy Evaluation and Treat [CONS] Stat Reason For Exam: CVA 10/17/16 05:10 Consult to Dietitian/Nutrition [CONS] Routine Physician Instructions: Reason For Exam: Reason for Consult: Poor oral intake 10/17/16 11:05 Consult to Case Management [CONS] Routine Services Needed at Discharge: DME Equipment Notified:: Case management-Corine Time called:: 11:33 Additional Physician Instructions: hospital bed Primary care physician: [facility] Hospitalization Reason for admission: CVA Condition: Stable Hospital course: Patient is a 86-year-old female with a history of recent CVA recently discharged from the hospital with Plavix. Also history of hypertension hyperlipidemia moderate dementia. And with a residual left hemiparesis. He presents to the hospital today with complaints made by this daughter of patient appeared more confused and also holding her food in her mouth without swallowing. Her medicine the patient was noted with drooling. Current insulin urologist exam 09/20 when on exam pt w/ R sided ataxia and slight UE hemiparesis. MRI Brain 09/20 confirmed R cerebellar infarct PICA distribution stroke. CDs neg. LDL 66. MRA Head anterior circulation athero. She was transitioned onto Plavix followed up with PCP/Neuro Repeat MRI Brain 10/16 reveals additional areas of infarct in multifocal posterior circulation which is either recurrent stroke vs. evolution of prior stroke in same vascular distribution. Neurologic decision the patient repeat echocardiogram was done and did not reveal any clots. Patient was also started on aspirin in addition to Plavix per neurology' s recommendation. Patient did have some altered sensorium but this has improved. She is weak and lethargic and I think she will benefit from correction facility. Family is agreeable to this. I did make adjustments to the blood pressure medications due to hypotension. Patient also has follow-up with cardiology to get a Holter monitor for 1 month to rule out any arrhythmias. 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 * Hypertensive urgency * Hyperlipidemia * Left Hemiparesis * Acute encephalopathy secondary to CVA * Acute cystitis Disposition: DC/TX-03 [facility] Time spent for discharge: 35 mins Core Measure Documentation - Palliative Care Palliative Care/ Comfort Measures: Not Applicable - Core Measures Any of the following diagnoses?: stroke - VTE Discharge Requirements Deep Vein Thrombosis/Pulmonary Embolism Present on Admission: No - Stroke Discharge Requirements Statin for LDL = or >70 mg/dl on DC: Yes Anticoag for atrial fib/atrial flutter: Not Applicable Antithrombotic for ischemic stroke: Yes Exam - Physical Exam Narrative exam: VITAL SIGNS: Reviewed. GENERAL: The patient appeared well nourished and normally developed. Vital signs as documented. HEAD: No signs of head trauma. EYES: Pupils are equal. Extraocular motions intact. EARS: Hearing grossly intact. MOUTH: Oropharynx is normal. NECK: No adenopathy, no JVD. CHEST: Chest with clear breath sounds bilaterally. No wheezes, rales, or rhonchi. CARDIAC: Regular rate and rhythm. S1 and S2, without murmurs, gallops, or rubs. VASCULAR: No Edema. Peripheral pulses normal and equal in all extremities. ABDOMEN: Soft, without detectable tenderness. No sign of distention. No rebound or guarding, and no masses palpated. Bowel Sounds normal. MUSCULOSKELETAL: Good range of motion of all major joints. Extremities without clubbing, cyanosis or edema. NEUROLOGIC EXAM: Alert and oriented x 3. No focal deficits sensory deficits motor strength is 4 over 5 on the left and 5 for far from the right. Speech normal. Follows commands. PSYCHIATRIC: Mood normal. SKIN: No rash or lesions. - Constitutional Vitals: Temp Pulse Resp BP Pulse Ox 98.4 F 92 H 18 101/67 97 10/18/16 12:50 10/18/16 12:50 10/18/16 12:50 10/18/16 12:50 10/18/16 12:50 Plan Activity: advance as tolerated, fall precautions Diet: low fat Special Instructions: record daily weights, record daily BP diary, physical therapy, occupational therapy, home health RN Additional Instructions: follow with neurology in one week. Follow with cardiology for Holter monitor 1 week Follow up with: LEE FLORES MD [Primary Care Provider] - 3-5 Days MICHAEL PULIDO MD [Staff Physician] - 7 Days Prescriptions: Simvastatin [Zocor TAB] 20 mg PO QHS #30 tablet Aspirin EC [Aspirin Enteric Coated TAB] 81 mg PO QDAY #30 tablet Ciprofloxacin HCl [Ciprofloxacin TAB] 500 mg PO BID #10 tablet hydrALAZINE [Apresoline TAB] 50 mg PO Q8HR #30 tablet
[2016-10-18 16:58] VITALS: BP 86/42
--- NOTE | 2016-10-22 07:47 | Vascular Lab Report ---
CAROTID DUPLEX STUDY: RIGHT PSVEDV CCA PROX:[id number] CCA DIST:6914 ICA PROX:5913 ICA MID:5718 ICA DIST:5117 ECA: 69 VERT: 16 0 LEFT PSVEDV CCA PROX:8214 CCA DIST:8016 ICA PROX:7015 ICA MID:6320 ICA DIST:9228 ECA: 67 VERT: 48 18 REASON FOR EXAM: Stroke. COMMENTS ON THE RIGHT: Doppler frequency analysis is consistent with 16 to 49 percent diameter reduction of the internal carotid artery. Minimal amount of plaque is seen. The common carotid artery is patent. The external carotid artery is patent. The vertebral artery has antegrade flow. Waveforms in the right vertebral artery are consistent with more distal occlusion or stenosis. COMMENTS ON THE LEFT: Doppler frequency analysis is consistent with 16 to 49 percent diameter reduction of the internal carotid artery. Minimal amount of plaque is seen. The common carotid artery is patent. The external carotid artery is patent. The vertebral artery has antegrade flow. IMPRESSION: Less than 50% diameter reduction in the internal carotid arteries bilaterally. Possible distal or intracranial right vertebral artery occlusion or stenosis. Clinical correlation is recommended. Followup studies with CTA or MRA should be considered if clinically warranted.
== END 2016-10-18 20:30 | DRG 64 ==
LOC: ED 17:25 → EDBD 22:30 → 4A 22:30
PROVIDERS: ADMIT Internal Medicine; ATTEND Internal Medicine
DX: I63.9 Cerebral infarction, unspecified (principal); G93.40 Encephalopathy, unspecified; G81.94 Hemiplegia, unspecified affecting left nondominant side; N30.00 Acute cystitis without hematuria; I10 Essential (primary) hypertension; I95.9 Hypotension, unspecified; E78.5 Hyperlipidemia, unspecified; I16.0 Hypertensive urgency; F03.90 Unspecified dementia, unspecified severity, without behavioral disturbance, psychotic disturbance, mood disturbance, and anxiety; Z86.73 Personal history of transient ischemic attack (TIA), and cerebral infarction without residual deficits; Z82.49 Family history of ischemic heart disease and other diseases of the circulatory system
CPT/HCPCS: 36415; 70450; 70496; 70498; 70551; 80048; 80053; 80061; 81001; 82140; 82550; 82553; 84439; 84443; 84484; 85025; 85610; 85730; 87086; 93005; 93010; 93306; 93880; 99285; A9270-GY; G8978-GP; G8979-GP; G8987-GO; G8988-GO; G8996-GN; G8997-GN; J0360; J0696; J1650; Q9967

== ENCOUNTER 2016-11-24 11:41 | Inpatient (IN) | payer MEDICARE ==
[2016-11-24 12:39] LABS: Urine Drugs of Abuse Note Disclamer
[2016-11-24 12:59] LABS: Bilirubin,Urine NEG (Negative); Blood,Urine NEG (Negative); Ketones,Urine NEG (Negative); Leukocyte Esterase,Urine TR (Negative); Mucus,Urine 3+ /HPF; Nitrite,Urine NEG (Negative); Urobilinogen,Urine < 2.0 mg/dL (<2.0)
[2016-11-24 13:00] LABS: Bacteria,Urine 4+ /HPF (Negative)
[2016-11-24 13:27] LABS: Albumin/Globulin Ratio 0.7 %; BUN/Creatinine Ratio 11.53; Bilirubin,Total 0.6 mg/dL (0.1-1.2); Calcium 9.4 mg/dL (8.4-10.2); Chloride 103.3 mmol/L (98-107); Potassium 4.5 mmol/L (3.6-5.0); Total Protein 7.1 g/dL (6.3-8.2)
--- NOTE | 2016-11-24 13:37 | Emergency Department Report ---
HPI - General Chief Complaint: Weakness Time Seen by Provider: 11/24/16 13:21 - HPI HPI: Room 18 The patient is an 86-year-old female presenting with a chief complaint of syncope. Family states patient was in her usual state of health this morning eating cereals and bananas. Daughter states she turned to rel when she turned back the patient was slumped over with serial comment on the right side of her mouth. There was states the patient was unresponsive for approximately 1 minute. Family moved the patient to the she began "perking up." The patient has a history of dementia and is not able to provide a full history but denies chest pain, shortness of breath, abdominal pain or headache. Family denies any history of vomiting or fever. When asked how she is feeling the patient replies she feels "okay." Location: [facility] Duration: 1 minute Quality: Unresponsive Severity: Moderate Modifying factors: [see above] Context: [see above] Mode of transportation: [not driving] ED Past Medical Hx - Past Medical History Previous Medical History?: Yes Hx Hypertension: Yes Hx CVA: Yes (with residual left-sided weakness) Hx Dementia: Yes Additional medical history: Glaucoma on right eye. high cholestrol. depression - Family History Family history: no significant - Social History Smoking Status: Never Smoker Substance Use Type: None - Medications Home Medications: Home Medications Medication Instructions Recorded Confirmed Last Taken Type Systane 1 drop OD BID 10/05/16 11/15/16 Unknown Rx Aspirin EC [Aspirin Enteric Coated 81 mg PO QDAY #100 tablet 11/18/16 Unknown Rx TAB] AtorvaSTATin [Lipitor] 10 mg PO QHS #30 tablet 11/18/16 Unknown Rx Carvedilol [Coreg] 25 mg PO BID #60 tablet 11/18/16 Unknown Rx Clopidogrel [Plavix] 75 mg PO QDAY #30 tablet 11/18/16 Unknown Rx ED Review of Systems ROS: Stated complaint: WEAKNESS Other details as noted in HPI Comment: All other systems reviewed and negative Constitutional: denies: chills, fever Eyes: denies: eye pain, eye discharge, vision change ENT: denies: ear pain, throat pain Respiratory: denies: cough, shortness of breath, wheezing Cardiovascular: denies: chest pain, palpitations Endocrine: no symptoms reported Gastrointestinal: denies: abdominal pain, nausea, diarrhea Genitourinary: denies: urgency, dysuria, discharge Musculoskeletal: denies: back pain, joint swelling, arthralgia Skin: denies: rash, lesions Neurological: other (syncope) Psychiatric: denies: anxiety, depression Hematological/Lymphatic: denies: easy bleeding, easy bruising Physical Exam - Physical Exam Vital Signs: Vital Signs 11/24/16 11/24/16 11/24/16 12:06 12:10 12:28 Temperature 97.5 F L Pulse Rate 71 77 75 Respiratory 10 L 10 L 16 Rate Blood Pressure 136/53 136/53 Blood Pressure [Right] O2 Sat by Pulse 98 98 98 Oximetry 11/24/16 11/24/16 12:30 12:55 Temperature 97.9 F 97.9 F Pulse Rate 82 82 Respiratory 14 Rate Blood Pressure Blood Pressure 139/50 139/50 [Right] O2 Sat by Pulse 99 99 Oximetry Physical Exam: GENERAL: The patient is well-developed well-nourished female lying on stretcher not appearing to be in acute distress. [] HEENT: Normocephalic. Atraumatic. Extraocular motions are intact. Patient has moist mucous membranes. NECK: Supple. Trachea midline CHEST/LUNGS: Clear to auscultation. There is no respiratory distress noted. HEART/CARDIOVASCULAR: Regular. There is no tachycardia. There is no gallop rub or murmur. ABDOMEN: Abdomen is soft, nontender. Patient has normal bowel sounds. There is no abdominal distention. SKIN: There is no rash. There is no edema. There is no diaphoresis. NEURO: The patient is awake and alert. The patient is cooperative. The patient has no focal neurologic deficits. The patient has normal speech. Cranial nerves II through XII grossly intact, no drift, embroidery operator 5+/5 bilaterally. Moves all extremities well. Normal sensation bilaterally MUSCULOSKELETAL: There is no evidence of acute injury. ED Course Vital Signs 11/24/16 11/24/16 11/24/16 12:06 12:10 12:28 Temperature 97.5 F L Pulse Rate 71 77 75 Respiratory 10 L 10 L 16 Rate Blood Pressure 136/53 136/53 Blood Pressure [Right] O2 Sat by Pulse 98 98 98 Oximetry 11/24/16 11/24/16 12:30 12:55 Temperature 97.9 F 97.9 F Pulse Rate 82 82 Respiratory 14 Rate Blood Pressure Blood Pressure 139/50 139/50 [Right] O2 Sat by Pulse 99 99 Oximetry ED Medical Decision Making - Lab Data Result diagrams: 11/24/16 13:07 11/24/16 13:07 Laboratory Tests 11/24/16 11/24/16 11/24/16 12:35 12:35 12:38 WBC RBC Hgb Hct MCV MCH MCHC RDW Plt Count Lymph % (Auto) [place] % (Auto) Eos % (Auto) Baso % (Auto) Lymph # [place] # Eos # Baso # Seg Neutrophils % Seg Neutrophils # PT INR APTT Sodium 137 Potassium 4.5 Chloride 103.3 Carbon Dioxide 21 L Anion Gap 17 BUN 15 Creatinine 1.3 H Estimated GFR 47 BUN/Creatinine Ratio 11.53 Glucose 139 H Calcium 9.4 Magnesium 2.00 Total Bilirubin 0.60 AST 25 ALT 12 Alkaline Phosphatase 37 Troponin T Total Protein 7.1 Albumin 3.0 L Albumin/Globulin Ratio 0.7 TSH Urine Color Yellow Urine Turbidity Turbid Urine pH 8.0 H Ur Specific [place] 1.013 Urine Protein 100 mg/dl Urine Glucose (UA) Neg Urine Ketones Neg Urine Blood Neg Urine Nitrite Neg Urine Bilirubin Neg Urine Urobilinogen < 2.0 Ur Leukocyte Esterase Tr Urine WBC (Auto) 23.0 H Urine RBC (Auto) 9.0 U Epithel Cells (Auto) 3.0 Urine Bacteria (Auto) 4+ Ur Transition Epith Cell 1 Amorphous Crystals 3+ Urine Mucus 3+ Salicylates Urine Opiates Screen Presumptive negative Urine Methadone Screen Presumptive negative Acetaminophen Ur Barbiturates Screen Presumptive negative Ur Phencyclidine Scrn Presumptive negative Ur Amphetamines Screen Presumptive negative U Benzodiazepines Scrn Presumptive negative Urine Cocaine Screen Presumptive negative U Marijuana (THC) Screen Presumptive negative Drugs of Abuse Note Disclamer 11/24/16 11/24/16 11/24/16 12:38 13:07 13:07 WBC 5.6 RBC 4.31 Hgb 12.2 Hct 35.9 MCV 83 MCH 28 MCHC 34 RDW 14.7 Plt Count 192 Lymph % (Auto) 25.1 [place] % (Auto) 7.9 H Eos % (Auto) 5.7 H Baso % (Auto) 0.8 Lymph # 1.4 [place] # 0.4 Eos # 0.3 Baso # 0.0 Seg Neutrophils % 60.5 Seg Neutrophils # 3.4 PT INR APTT Sodium Potassium Chloride Carbon Dioxide Anion Gap BUN Creatinine Estimated GFR BUN/Creatinine Ratio Glucose Calcium Magnesium Total Bilirubin AST ALT Alkaline Phosphatase Troponin T Total Protein Albumin Albumin/Globulin Ratio TSH 0.839 Urine Color Urine Turbidity Urine pH Ur Specific [place] Urine Protein Urine Glucose (UA) Urine Ketones Urine Blood Urine Nitrite Urine Bilirubin Urine Urobilinogen Ur Leukocyte Esterase Urine WBC (Auto) Urine RBC (Auto) U Epithel Cells (Auto) Urine Bacteria (Auto) Ur Transition Epith Cell Amorphous Crystals Urine Mucus Salicylates < 0.3 L Urine Opiates Screen Urine Methadone Screen Acetaminophen Ur Barbiturates Screen Ur Phencyclidine Scrn Ur Amphetamines Screen U Benzodiazepines Scrn Urine Cocaine Screen U Marijuana (THC) Screen Drugs of Abuse Note 11/24/16 11/24/16 11/24/16 13:07 13:07 13:07 WBC RBC Hgb Hct MCV MCH MCHC RDW Plt Count Lymph % (Auto) [place] % (Auto) Eos % (Auto) Baso % (Auto) Lymph # [place] # Eos # Baso # Seg Neutrophils % Seg Neutrophils # PT 14.6 INR 1.08 APTT 24.8 Sodium 138 Potassium 4.2 Chloride 102.2 Carbon Dioxide 25 Anion Gap 15 BUN 16 Creatinine 1.2 Estimated GFR 52 BUN/Creatinine Ratio 13.33 Glucose 158 H Calcium 9.5 Magnesium Total Bilirubin AST ALT Alkaline Phosphatase Troponin T < 0.010 Total Protein Albumin Albumin/Globulin Ratio TSH Urine Color Urine Turbidity Urine pH Ur Specific [place] Urine Protein Urine Glucose (UA) Urine Ketones Urine Blood Urine Nitrite Urine Bilirubin Urine Urobilinogen Ur Leukocyte Esterase Urine WBC (Auto) Urine RBC (Auto) U Epithel Cells (Auto) Urine Bacteria (Auto) Ur Transition Epith Cell Amorphous Crystals Urine Mucus Salicylates Urine Opiates Screen Urine Methadone Screen Acetaminophen < 15.0 Ur Barbiturates Screen Ur Phencyclidine Scrn Ur Amphetamines Screen U Benzodiazepines Scrn Urine Cocaine Screen U Marijuana (THC) Screen Drugs of Abuse Note - EKG Data -: EKG Interpreted by Me EKG shows normal: sinus rhythm Rate: normal - EKG Data When compared to previous EKG there are: no significant change Interpretation: nonspecific ST-T wave santa (T-wave inversions in leads 2, 3, aVF , V2, V3, V4, V5, V6 more pronounced blood essentially unchanged from previous EKG dated 11/17/2016) - Radiology Data Radiology results: report reviewed (CT head), image reviewed (CT head) CT head (read by radiologist)- no evidence of acute/subacute infarct or hemorrhage - Differential Diagnosis syncope, dysrhythmia, ICH, CVA, TIA Critical care attestation.: If time is entered above; I have spent that time in minutes in the direct care of this critically ill patient, excluding procedure time. ED Disposition Clinical Impression: Episode of unresponsiveness Disposition: DC-09 OP ADMIT IP TO THIS HOSP Is pt being admited?: Yes Does the pt Need Aspirin: Yes Condition: Fair Referrals: PRIMARY CARE, [Primary Care Provider] - 3-5 Days Time of Disposition: 14:02 (hospitalist paged)
[2016-11-24 13:42] LABS: Basophils % (Auto) 0.8 % (0.0-1.8); Eosinophils % (Auto) 5.7 % (0.0-4.3); Hematocrit 35.9 % (30.3-42.9); Hemoglobin 12.2 gm/dl (10.1-14.3); Mean Corpuscular HGB Conc 34 % (30-34); Mean Corpuscular Hemoglobin 28 pg (28-32); Mean Corpuscular Volume 83 fl (79-97); Platelet Count 192 K/mm3 (140-440); Red Blood Count 4.31 M/mm3 (3.65-5.03); Red Cell Distribution Width 14.7 % (13.2-15.2); White Blood Count 5.6 K/mm3 (4.5-11.0)
--- NOTE | 2016-11-24 13:53 | Cat Scan Report ---
CT HEAD WITHOUT CONTRAST: 11/24/16 11:41:00 CLINICAL: Neuro deficits. TECHNIQUE: 2.5-mm noncontrast scans. COMPARISON:10/15/16 FINDINGS: Stable enlargement of the ventricles and frontal and several sulci.A relatively large (1.6 x 1.5 cm) hypodensity of the left cerebellar peduncle is new compared to the prior exam and is consistent with a chronic infarct. A left caudate head chronic lacunar infarct is also new compared to the last exam. No suspicious hypodensity. No mass or mass effect. No hemorrhage, edema or extra-axial collection. The sinuses are clear. Normal orbits and soft tissues. The calvarium and skull base are intact. IMPRESSION: Cortical atrophy and chronic infarcts. No evidence of acute/subacute infarct or hemorrhage.
[2016-11-24 13:55] LABS: INR 1.08 (0.87-1.13); Partial Thromboplastin Time 24.8 Sec. (24.2-36.6)
[2016-11-24 14:00] LABS: Anion Gap 15 mmol/L; BUN/Creatinine Ratio 13.33; Blood Urea Nitrogen 16 mg/dL (7-17); Calcium 9.5 mg/dL (8.4-10.2); Carbon Dioxide 25 mmol/L (22-30); Chloride 102.2 mmol/L (98-107); Glucose 158 mg/dL (65-100); Potassium 4.2 mmol/L (3.6-5.0); Sodium 138 mmol/L (137-145)
[2016-11-24] MEDS ORDERED: ASPIRIN PO ONE (14:03)
[2016-11-24] MEDS ORDERED: D50W (25GM) IV PRN (15:58)
[2016-11-24] MEDS ORDERED: LEVAQUIN 500MG/100ML 500 MG/100 ML BAG IV SCH (16:00)
[2016-11-24] MEDS ORDERED: LEVAQUIN 750MG/150ML 750 MG/150 ML BAG IV SCH (17:00)
--- NOTE | 2016-11-24 17:32 | History and Physical Report ---
History of Present Illness Date of examination: 11/24/16 Date of admission: 11/24/16 15:36 Chief complaint: Unresponsiveness History of present illness: Patient is a 86-year-old lady was a history of dementia and hypertension was in her usual state of health, sitting with family members at home when she was suddenly noticed to be unresponsive. This was a brief moment of about 1. Patient eventually except. Was brought to the emergency department where CT scan of the brain was unremarkable for any acute event. Senile changes were identified with a consistent with her age. At emergency department infection. Also had hypoglycemia. Admission was therefore requested for further evaluation and treatment Past History Past Medical History: other (dementia) Past Surgical History: No surgical history Social history: denies: smoking, alcohol abuse Family history: no significant family history Medications and Allergies Allergies Allergy/AdvReac Type Severity Reaction Status Date / Time No Known Allergies Allergy Unverified 01/16/15 12:07 Home Medications Medication Instructions Recorded Confirmed Last Taken Type Aspirin EC [Aspirin Enteric Coated 81 mg PO QDAY #100 tablet 11/18/16 11/24/16 Unknown Rx TAB] AtorvaSTATin [Lipitor] 10 mg PO QHS #30 tablet 11/18/16 11/24/16 Unknown Rx Carvedilol [Coreg] 25 mg PO BID #60 tablet 11/18/16 11/24/16 Unknown Rx Clopidogrel [Plavix] 75 mg PO QDAY #30 tablet 11/18/16 11/24/16 Unknown Rx Systane 1 drop OD TID PRN 11/24/16 11/24/16 Unknown History Active Meds: Active Medications Aspirin (Halfprin Ec) 81 mg PO QDAY SAHIL Atorvastatin Calcium (Lipitor) 10 mg PO QHS SAHIL Carvedilol (Coreg) 25 mg PO BID SAHIL Clopidogrel Bisulfate (Plavix) 75 mg PO QDAY SAHIL Dextrose (D50w (25gm)) 50 ml IV PRN PRN PRN Reason: Hypoglycemia Enoxaparin Sodium (Lovenox) 40 mg SUB-Q QDAY SAHIL Levofloxacin/Dextrose (Levaquin 750mg/150ml) 750 mg in 150 mls @ 150 mls/hr IV Q48H SAHIL PRN Reason: Protocol Insulin Aspart (Novolog) 0 units SUB-Q ACHS SAHIL PRN Reason: Protocol Review of Systems ROS unobtainable: due to mental status Exam - Constitutional Vitals: Temp Pulse Resp BP Pulse Ox 98.0 F 82 18 139/82 99 11/24/16 16:11 11/24/16 16:11 11/24/16 16:11 11/24/16 16:11 11/24/16 16:11 General appearance: Present: no acute distress, well-nourished, other (confused) - EENT Eyes: Present: PERRL - Neck Neck: Present: supple, normal ROM - Respiratory Respiratory effort: normal Respiratory: bilateral: CTA - Cardiovascular Heart Sounds: Present: S1 & S2. Absent: rub, click - Extremities Extremities: pulses symmetrical, No edema Peripheral Pulses: within normal limits - Abdominal General gastrointestinal: Present: soft, non-tender, non-distended, normal bowel sounds - Integumentary Integumentary: Present: clear, warm, dry - Musculoskeletal Musculoskeletal: generalized weakness - Psychiatric Psychiatric: no intact judgment & insight, no cooperative - Neurologic Neurologic: CNII-XII intact, moves all extremities Results - Labs CBC & Chem 7: 11/24/16 13:07 11/24/16 13:07 Assessment and Plan - Unresponsiveness - Metabolic encephalopathy - Urinary tract infection - Hyperglycemia - Dementia Plan Admit patient to telemetry CT scan of the brain was unremarkable Obtain urine culture. Commence patient on empirical Levaquin Obtain A1c, commence patient on sliding scale insulin and consistent, hydrated diet DVT prophylaxis with Lovenox and GI with Pepcid Spent over 30 minutes during this admission process and direct patient care evaluation of laboratory and radiological data.
[2016-11-24] MEDS ORDERED: APRESOLINE IV PRN (17:44)
[2016-11-24] MEDS: LOVENOX SUB-Q SCH (18:36)
[2016-11-24] MEDS: NOVOLOG SUB-Q SCH (18:37)
[2016-11-24] MEDS: PLAVIX PO SCH (18:37)
[2016-11-24] MEDS: PROCARDIA XL PO SCH (18:38)
[2016-11-24] MEDS: ZESTRIL PO SCH (18:38)
[2016-11-24] MEDS: COREG PO SCH (21:28)
[2016-11-25] MEDS: NOVOLOG SUB-Q SCH ×5 (00:08→22:00)
[2016-11-25 06:56] LABS: Basophils % (Auto) 1.1 % (0.0-1.8); Eosinophils % (Auto) 8.6 % (0.0-4.3); Hematocrit 35.6 % (30.3-42.9); Hemoglobin 12.1 gm/dl (10.1-14.3); Mean Corpuscular HGB Conc 34 % (30-34); Mean Corpuscular Hemoglobin 28 pg (28-32); Mean Corpuscular Volume 83 fl (79-97); Platelet Count 176 K/mm3 (140-440); Red Blood Count 4.32 M/mm3 (3.65-5.03); Red Cell Distribution Width 14.7 % (13.2-15.2); White Blood Count 4.2 K/mm3 (4.5-11.0)
[2016-11-25 07:12] LABS: Albumin 3.1 g/dL (3.9-5); Albumin/Globulin Ratio 0.9 %; BUN/Creatinine Ratio 11.53; Bilirubin,Total 0.6 mg/dL (0.1-1.2); Calcium 9.2 mg/dL (8.4-10.2); Chloride 105.8 mmol/L (98-107); Potassium 3.8 mmol/L (3.6-5.0); Total Protein 6.6 g/dL (6.3-8.2)
[2016-11-25] MEDS: PROCARDIA XL PO SCH ×2 (09:28→22:00)
[2016-11-25] MEDS: HALFPRIN EC PO SCH (09:28)
[2016-11-25] MEDS: COREG PO SCH ×2 (09:28→22:00)
[2016-11-25] MEDS: ZESTRIL PO SCH (09:28)
[2016-11-25] MEDS: PLAVIX PO SCH (09:28)
[2016-11-25] MEDS: LOVENOX SUB-Q SCH (09:29)
[2016-11-25] MEDS ORDERED: NACL 0.9% 1000 ML 1,000 ML IV SCH (10:00)
[2016-11-25] MEDS ORDERED: ZESTRIL PO SCH (10:00)
--- NOTE | 2016-11-25 12:45 | Progress Note ---
Assessment and Plan Assessment and plan: --Metabolic encephalopathy; Probably secondary to dementia, possible urinary tract infection Neurochecks and supportive care --Urinary tract infection; Empiric antibiotics, follow urine cultures, IV fluids and supportive care --Dementia; resume home dementia medications --Mild to moderate malnutrition, nutrition supplements with boost and supportive care --History of CVA with residual weakness Continue aspirin Plavix and statin, physical therapy occupational therapy and supportive care --DVT prophylaxis; Lovenox --Full CODE STATUS --DC planning. Case management Possible placement versus home with home health in stable Assessment and treatment plan reviewed with patient's daughter at the bedside as well as the nurse History Interval history: Patient seen and evaluated medical records reviewed Admitted with altered level of consciousness possible UTI Patient is more alert and awake on new complaints Hospitalist Physical - Constitutional Vitals: Temp Pulse Resp BP Pulse Ox 98.4 F 76 20 149/64 96 11/25/16 07:38 11/25/16 07:38 11/25/16 07:38 11/25/16 07:38 11/25/16 07:38 General appearance: Present: no acute distress, well-nourished, other (confused) - EENT Eyes: Present: PERRL, EOM intact - Neck Neck: Present: supple, normal ROM - Respiratory Respiratory effort: normal Respiratory: negative: rales, rhonchi, wheezing - Cardiovascular Rhythm: regular Heart Sounds: Present: S1 & S2 - Extremities Extremities: no ischemia, pulses intact, pulses symmetrical - Abdominal General gastrointestinal: soft, non-tender, non-distended, normal bowel sounds - Integumentary Integumentary: Present: clear, warm - Psychiatric Psychiatric: appropriate mood/affect, cooperative - Neurologic Neurologic: CNII-XII intact, moves all extremities Results - Labs CBC & Chem 7: 11/25/16 06:04 11/25/16 06:04 Labs: Laboratory Last Values WBC 4.2 K/mm3 (4.5-11.0) L 11/25/16 06:04 RBC 4.32 M/mm3 (3.65-5.03) 11/25/16 06:04 Hgb 12.1 gm/dl (10.1-14.3) 11/25/16 06:04 Hct 35.6 % (30.3-42.9) 11/25/16 06:04 MCV 83 fl (79-97) 11/25/16 06:04 MCH 28 pg (28-32) 11/25/16 06:04 MCHC 34 % (30-34) 11/25/16 06:04 RDW 14.7 % (13.2-15.2) 11/25/16 06:04 Plt Count 176 K/mm3 (140-440) 11/25/16 06:04 Lymph % (Auto) 32.0 % (13.4-35.0) 11/25/16 06:04 Wise % (Auto) 12.0 % (0.0-7.3) H 11/25/16 06:04 Eos % (Auto) 8.6 % (0.0-4.3) H 11/25/16 06:04 Baso % (Auto) 1.1 % (0.0-1.8) 11/25/16 06:04 Lymph # 1.4 K/mm3 (1.2-5.4) 11/25/16 06:04 Wise # 0.5 K/mm3 (0.0-0.8) 11/25/16 06:04 Eos # 0.4 K/mm3 (0.0-0.4) 11/25/16 06:04 Baso # 0.0 K/mm3 (0.0-0.1) 11/25/16 06:04 Seg Neutrophils % 46.3 % (40.0-70.0) 11/25/16 06:04 Seg Neutrophils # 2.0 K/mm3 (1.8-7.7) 11/25/16 06:04 PT 14.6 Sec. (12.2-14.9) 11/24/16 13:07 INR 1.08 (0.87-1.13) 11/24/16 13:07 APTT 24.8 Sec. (24.2-36.6) 11/24/16 13:07 Thrombin Time 16.3 Sec. (15.1-19.6) 11/24/16 13:07 Sodium 143 mmol/L (137-145) 11/25/16 06:04 Potassium 3.8 mmol/L (3.6-5.0) 11/25/16 06:04 Chloride 105.8 mmol/L (98-107) 11/25/16 06:04 Carbon Dioxide 25 mmol/L (22-30) 11/25/16 06:04 Anion Gap 16 mmol/L 11/25/16 06:04 BUN 15 mg/dL (7-17) 11/25/16 06:04 Creatinine 1.3 mg/dL (0.7-1.2) H 11/25/16 06:04 Estimated GFR 47 ml/min 11/25/16 06:04 BUN/Creatinine Ratio 11.53 % 11/25/16 06:04 Glucose 86 mg/dL (65-100) 11/25/16 06:04 POC Glucose 113 (70-105) H 11/25/16 08:57 Hemoglobin A1c 5.3 % (4-6) 11/24/16 16:24 Lactic Acid 1.20 mmol/L (0.7-2.0) 11/24/16 15:21 Calcium 9.2 mg/dL (8.4-10.2) 11/25/16 06:04 Magnesium 2.00 mg/dL (1.7-2.3) 11/24/16 12:38 Total Bilirubin 0.60 mg/dL (0.1-1.2) 11/25/16 06:04 AST 19 units/L (5-40) 11/25/16 06:04 ALT 9 units/L (7-56) 11/25/16 06:04 Alkaline Phosphatase 34 units/L (35-129) L 11/25/16 06:04 Troponin T < 0.010 ng/mL (0.00-0.029) 11/24/16 13:07 Total Protein 6.6 g/dL (6.3-8.2) 11/25/16 06:04 Albumin 3.1 g/dL (3.9-5) L 11/25/16 06:04 Albumin/Globulin Ratio 0.9 % 11/25/16 06:04 TSH 0.839 mlU/mL (0.270-4.200) 11/24/16 12:38 Urine Color Yellow (Yellow) 11/24/16 12:35 Urine Turbidity Turbid (Clear) 11/24/16 12:35 Urine pH 8.0 (5.0-7.0) H 11/24/16 12:35 Ur Specific [place] 1.013 (1.003-1.030) 11/24/16 12:35 Urine Protein 100 mg/dl mg/dL (Negative) 11/24/16 12:35 Urine Glucose (UA) Neg mg/dL (Negative) 11/24/16 12:35 Urine Ketones Neg mg/dL (Negative) 11/24/16 12:35 Urine Blood Neg (Negative) 11/24/16 12:35 Urine Nitrite Neg (Negative) 11/24/16 12:35 Urine Bilirubin Neg (Negative) 11/24/16 12:35 Urine Urobilinogen < 2.0 mg/dL (<2.0) 11/24/16 12:35 Ur Leukocyte Esterase Tr (Negative) 11/24/16 12:35 Urine WBC (Auto) 23.0 /HPF (0.0-6.0) H 11/24/16 12:35 Urine RBC (Auto) 9.0 /HPF (0.0-6.0) 11/24/16 12:35 U Epithel Cells (Auto) 3.0 /HPF (0-13.0) 11/24/16 12:35 Urine Bacteria (Auto) 4+ /HPF (Negative) 11/24/16 12:35 Ur Transition Epith Cell 1 /HPF 11/24/16 12:35 Amorphous Crystals 3+ 11/24/16 12:35 Urine Mucus 3+ /HPF 11/24/16 12:35 Salicylates < 0.3 mg/dL (2.8-20.0) L 11/24/16 13:07 Urine Opiates Screen Presumptive negative 11/24/16 12:35 Urine Methadone Screen Presumptive negative 11/24/16 12:35 Acetaminophen < 15.0 ug/mL (10.0-30.0) 11/24/16 13:07 Ur Barbiturates Screen Presumptive negative 11/24/16 12:35 Ur Phencyclidine Scrn Presumptive negative 11/24/16 12:35 Ur Amphetamines Screen Presumptive negative 11/24/16 12:35 U Benzodiazepines Scrn Presumptive negative 11/24/16 12:35 Urine Cocaine Screen Presumptive negative 11/24/16 12:35 U Marijuana (THC) Screen Presumptive negative 11/24/16 12:35 Drugs of Abuse Note Disclamer 11/24/16 12:35 Plasma/Serum Alcohol < 0.01 gm% (0-0.07) 11/24/16 13:27
[2016-11-25] MEDS ORDERED: MILK OF MAGNESIA PO PRN (16:12)
--- NOTE | 2016-11-26 05:45 | Admit Criteria Form ---
Admission Criteria Documentation: URINARY COMPLICATIONS Clinical Indications for Inpatient Care (Place 'X' for any and all applicable criteria): Ongoing inpatient care may be indicated for urinary complications with ANY ONE of the following: [X]I. Urinary tract infection requiring inpatient care as indicated by ANY ONE of the following(8)(19)(20): [ ]a) Severe symptoms (eg, high fever, severe pain) [ ]b) Vomiting or dehydration requiring ongoing inpatient care [X]c) IV antibiotic needs that cannot be managed at lower level of care [ ]d) Hemodynamic instability [ ]e) Obstruction of collecting system by stone or tumor [ ]II. Urinary retention requiring drainage or surgery (3)(4)(5)(17)(18) [ ]III. Renal failure (Use Renal Failure Criteria for further information.) [ ]IV. Oliguria(30) [ ]V. Post obstructive diuresis requiring close monitoring of urine output and intravenous compensation for excessive fluid losses(33) Extended stay beyond goal length of stay for primary condition may be needed until ALL of the following are present(3)(4)(5)(8): [ ]a) Renal function (creatinine) at baseline, or daily decreases in creatinine consistent with renal function return [ ]b) Voiding adequately or with urinary catheter or percutaneous suprapubic tube and management regimen in place that is performable at lower level of care. [ ]c) Urine output adequate [ ]d) Fever absent or resolving [ ]e) Infection absent or treatable at next level of care The original [employer] content created by [employer] has been revised. The portions of the content which have been revised are identified through the use of italic text or in bold, and [facility] has neither reviewed nor approved the modified material. All other unmodified content is copyright [employer] Please see references footnoted in the original [employer] edition 2016 Admission Criteria Met: Yes
[2016-11-26 06:04] LABS: Basophils % (Auto) 0.6 % (0.0-1.8); Eosinophils % (Auto) 4.1 % (0.0-4.3); Hematocrit 35.9 % (30.3-42.9); Hemoglobin 12.1 gm/dl (10.1-14.3); Mean Corpuscular HGB Conc 34 % (30-34); Mean Corpuscular Hemoglobin 28 pg (28-32); Mean Corpuscular Volume 83 fl (79-97); Platelet Count 169 K/mm3 (140-440); Red Blood Count 4.32 M/mm3 (3.65-5.03); Red Cell Distribution Width 14.5 % (13.2-15.2); White Blood Count 5.3 K/mm3 (4.5-11.0)
[2016-11-26 06:26] LABS: Albumin/Globulin Ratio 0.9 %; BUN/Creatinine Ratio 13.33; Bilirubin,Total 0.5 mg/dL (0.1-1.2); Calcium 9.2 mg/dL (8.4-10.2); Chloride 105.6 mmol/L (98-107); Potassium 3.8 mmol/L (3.6-5.0); Total Protein 6.5 g/dL (6.3-8.2)
[2016-11-26] MEDS: NOVOLOG SUB-Q SCH ×2 (08:00→12:22)
[2016-11-26 09:45] VITALS: BP 134/58
[2016-11-26] MEDS: PLAVIX PO SCH (10:40)
[2016-11-26] MEDS: HALFPRIN EC PO SCH (10:40)
[2016-11-26] MEDS: PROCARDIA XL PO SCH (10:40)
[2016-11-26] MEDS: LOVENOX SUB-Q SCH (10:40)
[2016-11-26] MEDS: ZESTRIL PO SCH (10:41)
[2016-11-26] MEDS: COREG PO SCH (10:43)
--- NOTE | 2016-11-26 11:38 | Discharge Summary ---
Providers - Providers Date of Admission: 11/24/16 15:36 Date of discharge: 11/26/16 Attending physician: RAGHAV REHMAN 11/24/16 17:36 Physical Therapy Evaluation and Treat [CONS] Routine Comment: Reason For Exam: debilitation Primary care physician: SECURITY CONTROL ASSESSOR Hospitalization Condition: Fair Disposition: DC-50 TO HOSPICE (HOME) Time spent for discharge: 32 min Core Measure Documentation - Palliative Care Palliative Care/ Comfort Measures: Not Applicable - Core Measures Any of the following diagnoses?: none Exam - Constitutional Vitals: Temp Pulse Resp BP Pulse Ox 98.2 F 76 18 134/58 98 11/26/16 09:28 11/26/16 10:43 11/26/16 09:28 11/26/16 10:43 11/26/16 09:28 General appearance: Present: no acute distress, well-nourished - EENT Eyes: Present: PERRL, EOM intact - Neck Neck: Present: supple, normal ROM - Respiratory Respiratory effort: normal Respiratory: negative: rales, rhonchi, wheezing - Cardiovascular Rhythm: regular Heart Sounds: Present: S1 & S2 - Extremities Extremities: no ischemia, pulses intact, pulses symmetrical - Abdominal General gastrointestinal: Present: soft, non-tender, non-distended, normal bowel sounds - Integumentary Integumentary: Present: clear, warm - Musculoskeletal Musculoskeletal: strength equal bilaterally - Psychiatric Psychiatric: appropriate mood/affect, cooperative - Neurologic Neurologic: moves all extremities Plan Activity: advance as tolerated, fall precautions Diet: diabetic Special Instructions: physical therapy Follow up with: PRIMARY CARE, [Primary Care Provider] - 3-5 Days Prescriptions: NIFEdipine XL [Procardia Xl] 30 mg PO BID #60 tablet
== END 2016-11-26 13:50 | disposition hospice, home (50) | DRG 689 ==
LOC: ED 11:41 → 4A 15:36
PROVIDERS: ADMIT Family Medicine; ATTEND Internal Medicine
DX: N39.0 Urinary tract infection, site not specified (principal); G93.41 Metabolic encephalopathy; E44.0 Moderate protein-calorie malnutrition; I69.354 Hemiplegia and hemiparesis following cerebral infarction affecting left non-dominant side; E78.00 Pure hypercholesterolemia, unspecified; F03.90 Unspecified dementia, unspecified severity, without behavioral disturbance, psychotic disturbance, mood disturbance, and anxiety; R73.9 Hyperglycemia, unspecified; H40.9 Unspecified glaucoma; F32.9 Major depressive disorder, single episode, unspecified; I10 Essential (primary) hypertension; Z68.24 Body mass index [BMI] 24.0-24.9, adult
CPT/HCPCS: 36415; 70450; 80048; 80053; 80307; 80320; 81001; 82140; 82962; 83036; 83735; 84443; 84484; 85025; 85610; 85670; 85730; A9270-GY; G0480; G8978-GP; G8979-GP; J0360; J1650; J1815; J1956; J7030